=== PATIENT | female | born 1940 | race Caucasian/White ===

== ENCOUNTER → 2019-01-02 08:00 | Outpatient (CLI) | payer MEDICARE, BC, SELFPAY ==
[2019-01-02 09:06] LABS: Erythrocyte Sedimentation Rate 10 mm/hr (0-30)
[2019-01-02 09:07] LABS: Hematocrit 44.7 % (37-47); Hemoglobin 14.5 g/dl (12.0-15.0); Mean Corp Hgb Conc 32.4 g/gl (32-36); Mean Corpuscular Hgb 32.1 pg (27.0-32.0); Mean Corpuscular Volume 98.9 fL (81-99); Mean Platelet Vol. 10.2 fl (6.2-12.0); Platelet Count 335 K/mm3 (150-450); RBC Distribution Width CV 13.9 % (11.6-14.6); Red Blood Count 4.52 M/mm3 (4.2-5.4); Scan Indicated on CBC? Y/N NO; White Blood Count 9.2 K/mm3 (4.4-11.0)
[2019-01-02 09:30] LABS: CRP < 2.90 mg/L (0.0-3.0)
== END ==
PROVIDERS: Family Provider Internal Medicine; PCP Internal Medicine; Referring Provider Ophthalmology; Visit Provider Ophthalmology
DX: R51 Headache (principal)
CPT/HCPCS: 36415; 85027; 85652; 86140

== ENCOUNTER 2020-08-14 11:53 | Emergency (ER) | payer MEDICARE, BC, SELFPAY ==
[2020-08-14 11:55] VITALS: BP 128/80; PULSE 95; RESP 18; TEMP 36.3; O2SAT 91; BMI 16.2
--- NOTE | 2020-08-14 12:21 | RAD_ITS ---
STUDY: X-RAY - RIGHT SHOULDER REASON FOR EXAM: Female, 80 years old. PAIN S/P FALL TECHNIQUE: 2 view(s) of the shoulder. COMPARISON: None. FINDINGS: There is moderate degenerative arthrosis of the glenohumeral articulation. There is degenerative arthrosis of the acromioclavicular joint without inferior osseous spur formation. Normal acromion. Nondisplaced impacted fracture of the proximal surgical neck of the humerus with extension to the greater tuberosity. Soft tissue swelling. Normal visualized pulmonary apex. RAD/Shoulder min 2 Views IMPRESSION: Impacted fracture of the surgical neck of the humerus with extension to the greater tuberosity. Electronically Signed: Maxwell Ventura, at 12:58 EDT , Service support ,
--- NOTE | 2020-08-14 12:21 | RAD_ITS ---
STUDY: X-RAY - RIGHT HUMERUS REASON FOR EXAM: Female, 80 years old. PAIN S/P FALL TECHNIQUE: 2 view(s) of the humerus. COMPARISON: None. FINDINGS: Nondisplaced fracture involving the surgical neck of the humerus with extension to the greater tuberosity. Soft tissue swelling. RAD/Humerus min 2 Views IMPRESSION: Nondisplaced impacted fracture of the surgical neck of the proximal humerus with extension to the greater tuberosity. Electronically Signed: Maxwell Ventura, at 12:57 EDT , Service support ,
--- NOTE | 2020-08-14 13:05 | ED.VIS.FALL ---
History of Present Illness Chief Complaint: Upper Extremity Injury Informant: Patient Occurred: Today Mechanism/Context: Same level fall, Trip - In her home, falling to carpet against her right shoulder Usually ambulates: Without assistance Location: Right shoulder, arm, elbow Quality of Pain: Aching Current Severity: Mild Maximum Severity: Moderate Worsened by: Movement Relieved by: Remaining still Associated Symptoms: Loss of function - Trouble moving at the shoulder mostly. Negative for: Parasthesias, Weakness, Inability to ambulate, Loss of consciousness, Amnesia Narrative: Denies any other injury. [id number]. Lives alone. Past Medical History - Allergies and Home Meds Allergies/Adverse Reactions: Allergies acetaminophen [From Percocet] Allergy (Verified 08/14/20 11:57) PT UNABLE TO RESPOND-NEEDS F/U dizziness oxycodone [From Percocet] Allergy (Verified 08/14/20 11:57) PT UNABLE TO RESPOND-NEEDS F/U dizziness Primary Care Physician: Gabrielle Donis MD [Primary Care Provider] - Past Medical History: None Surgical History: cholecystectomy Lives: Alone Smoking Status: Never smoker Review of Systems General: Denies: Chills, Fever, Sweats Eyes: Denies: Visual changes - bilaterally, Diplopia ENT: Denies: Rhinorrhea, Sore throat Cardiovascular: Denies: Chest pain, Palpitations Respiratory: Denies: Dyspnea, Cough, Dyspnea on exertion Gastrointestinal: Denies: Abdominal pain, Nausea, Vomiting, Diarrhea, Melena, Hematochezia Genitourinary: Denies: Dysuria, Hematuria, Frequency Musculoskeletal: Reports: Extremity Pain. Denies: Neck pain, Back pain, Swelling Skin: Denies: Rash, Wounds Neurological: Denies: Headache, Weakness, Numbness Physical Exam Vital Signs/Narrative: Vital Signs Temp Pulse Resp BP Pulse Ox 08/14/20 11:55 97.3 F L 95 18 128/80 H 91 Inital Vital Signs reviewed: Yes General: Well nourished, Well developed, - - Well-appearing no distress Head: Normocephalic, Atraumatic Eyes: Perrl, EOMI ENT: TM's clear, No hemotympanum or drainage, No trauma Neck: Nontender, Full ROM Cardiovascular: Regular rate, Regular rhythm. Negative for: Tachycardia Respiratory: No distress, CTA bilaterally, Chest nontender Abdomen: Soft, Nontender, Nondistended, Normal bowel sounds Back: Nontender, - - Good range of motion without pain.. Negative for: Spinal Tenderness Extremeties: Limited range of motion right shoulder, with proximal humerus tenderness. No deformity. No subacromial, acromioclavicular tenderness. Able to abduct about 10 to 15 degrees only due to pain. Good range of motion of the elbow, mildly tender at the medial epicondyle, but no other bony tenderness including the radial head, with painless supination and pronation with regards to the elbow. All other joints of the right upper extremity and of the other 3 extremities ranged without any difficulty or evidence of trauma including her hips. Skin: Normal color, No rash, No Trauma Neurological: Alert, Oriented x3, Cranial nerves II-XII grossly intact, Normal Strength, Normal Sensation, Normal Gait Psychological: Normal affect, Normal Mood Diagnostic/Tx/Re-eval Clinical Impression(s) from Imaging Studies Humerus X-Ray 08/14/20 12:21 IMPRESSION: Nondisplaced impacted fracture of the surgical neck of the proximal humerus with extension to the greater tuberosity. Electronically Signed: Maxwell Ventura, at 12:57 EDT , Service support , Shoulder X-Ray 08/14/20 12:21 IMPRESSION: Impacted fracture of the surgical neck of the humerus with extension to the greater tuberosity. Electronically Signed: Maxwell Ventura, at 12:58 EDT , Service support , - Medical Decision Making Patient is placed in a sling and offered analgesics. She was offered admission, she states she has family that can help her at home some and wants to go home at this time and follow up with orthopedics as an outpatient. If she has too much trouble at home, she is encouraged to come back and she and family are fine with that. ED Disposition - Plan for ED Patient: Disposition: Home or Assisted Living Diagnosis: Closed fracture of proximal end of right humerus Instructions: ED Fracture Upper Extremity, ED Sling Prescriptions: Hydrocodone Bitart/Apap 5-325 [[place] 5MG-325MG] 0.5 - 1 tab PO Q4H PRN PRN 2 Days #10 tab PRN Reason: Pain Prescription Printed Referrals: Gabrielle Donis MD [Primary Care Provider] - Quinton Sheehan MD [STAFF PHYSICIAN] - (call for appt)
[2020-08-14] MEDS: HYDROcodone Bitartrate/Apap 5/325 Tablet PO (13:44)
[2020-08-14 13:45] VITALS: PULSE 88; RESP 17; O2SAT 92
== END 2020-08-14 13:46 | disposition home or self-care (01) ==
PROVIDERS: Emergency Provider Emergency Medicine; PCP Internal Medicine
DX: S42.214A Unspecified nondisplaced fracture of surgical neck of right humerus, initial encounter for closed fracture (principal); W18.30XA Fall on same level, unspecified, initial encounter; Y93.9 Activity, unspecified; Y92.009 Unspecified place in unspecified non-institutional (private) residence as the place of occurrence of the external cause; Y99.9 Unspecified external cause status
CPT/HCPCS: 73030; 73060; 99283

== ENCOUNTER 2020-08-25 17:28 | Emergency (ER) | payer MEDICARE, BC, SELFPAY ==
[2020-08-25 17:28] VITALS: BP 126/58; PULSE 87; RESP 16; TEMP 36.6; O2SAT 92; BMI 16.1
--- NOTE | 2020-08-25 17:55 | EKG12_ITS ---
Test Reason : LOWER EXTREMETY Blood Pressure : / mmHG Vent. Rate : 080 BPM Atrial Rate : 080 BPM P-R Int : 160 ms QRS Dur : 092 ms QT Int : 374 ms P-R-T Axes : 090 081 074 degrees QTc Int : 431 ms Normal sinus rhythm with sinus arrhythmia Incomplete right bundle branch block Borderline ECG Confirmed by SUSHIL WEISS, GLADYS ([id number]), commercial production editor CASSIE JACKSON ([id number]) on 09/01/2020 8:42:02 A M Referred By: SOHA/UBALDO Confirmed By:CORA LING MD
--- NOTE | 2020-08-25 17:56 | RAD_ITS ---
STUDY: X-RAY CHEST REASON FOR EXAM: Female, 80 years old. Cough, edema. TECHNIQUE: 2 PA and 2 lateral views of the chest COMPARISON: 2012 FINDINGS: EKG leads overlie the chest. Lungs are hyperexpanded with chronic interstitial changes, no superimposed acute pulmonary process. The lungs are clear and expanded. There is no demonstrated pleural abnormality. Normal size heart. Normal mediastinum and landon. Normal visualized pulmonary arteries. There is atherosclerotic calcification of the aortic arch with tortuosity. There are diffuse degenerative changes of the visualized thoracic spine. Normal visualized ribs, clavicles, and shoulders. There is no demonstrated abnormality of the visualized soft tissue structures of the upper abdomen. RAD/Chest PA and Lateral IMPRESSION: Hyperexpanded lungs with chronic interstitial changes, no superimposed acute pulmonary process Electronically Signed: Yahir Cornell MD at 19:17 EDT , Service support ,
--- NOTE | 2020-08-25 18:24 | ED.DCSUM_ITS ---
History of Present Illness Chief Complaint: Edema Informant: Patient, Family Onset: Days Context: Sudden Onset Timing: Continuous Quality: Swelling of the lower extremity and feet Location: Lower extremity Current Severity: Moderate Maximum Severity: Moderate Worsened by: Possibly immobility Relieved by: Nothing Associated Symptoms: Patient recently fractured her right shoulder and has not been as active. Narrative: Patient 80-year-old woman on no medication. She was recent diagnosed with a 2 part proximal right humeral fracture. She is in a sling. Daughter states she will not require surgery. She is present no medication. She denies orthopnea PND. She denies chest pain. She denies palpitations. She denies dyspnea, dyspnea on exertion. She denies any urinary symptoms. She has no known renal disease. Patient states her legs are not painful. Prior similar symptoms: No Recent Illness/Hospitalization: Yes - Proximal right humerus fracture - Past Medical History (1) Shoulder fracture, right Status: Acute Past Medical History - Allergies and Home Meds Allergies/Adverse Reactions: Allergies oxycodone [From Percocet] Allergy (Verified 08/14/20 11:57) PT UNABLE TO RESPOND-NEEDS F/U dizziness Primary Care Physician: Gabrielle Donis MD [Primary Care Provider] - Prior records reviewed: Yes Past Medical History: None Surgical History: cholecystectomy Lives: With Family Smoking Status: Current every day smoker Alcohol: None Drugs: None Review of Systems General: Denies: Chills, Fever, Sweats Eyes: Denies: Visual changes - bilaterally, Blurred Vision - bilaterally, Diplopia ENT: Denies: Rhinorrhea, Sore throat Cardiovascular: Denies: Chest pain, Palpitations, Heart racing Respiratory: Denies: Dyspnea, Cough, Dyspnea on exertion, Orthopnea, Paroxysmal nocturnal dyspnea Gastrointestinal: Denies: Abdominal pain, Nausea, Vomiting, Diarrhea, Melena, Hematochezia Genitourinary: Denies: Dysuria, Hematuria, Frequency Musculoskeletal: Reports: Swelling. Denies: Myalgias, Arthralgias, Neck pain, Back pain, Extremity Pain, -, - Skin: Denies: Rash, Wounds Neurological: Denies: Headache, Weakness, Numbness Hematologic: Denies: Easy bruising, Easy bleeding Physical Exam Vital Signs/Narrative: Vital Signs Temp Pulse Resp BP Pulse Ox 08/25/20 17:28 97.8 F 87 16 126/58 H 92 Inital Vital Signs reviewed: Yes General: Well nourished, Well developed Eyes: Perrl, EOMI. Negative for: Pale conjunctiva ENT: Moist mucous membranes, No rhinorrhea Neck: Supple, Nontender, No lymphadenopathy, No JVD Cardiovascular: Regular rate, Regular rhythm, No murmurs, Normal S1, Normal S2 Respiratory: No distress, CTA bilaterally, Chest nontender Rectal: Deferred Back: Negative for: Nontender, Normal Inspection Extremities: Edema - 6 to 8 mm of pitting edema, - - Discoloration of the right upper extremity due to the proximal humeral fracture. Axillary, median, radial and ulnar function intact.. Negative for: Calf Tenderness Skin: No rash, Pallor. Negative for: Cyanosis, Diaphoresis, Jaundice, No Trauma Neurological: Alert, Oriented x3, Cranial nerves II-XII grossly intact, Normal Strength, Normal Sensation Psychological: Normal affect, Normal Mood Diagnostic/Tx/Re-eval Chest X-Ray - ED: 2 View, Read by ED Physician, Normal, Heart, No Acute Disease, Chronic Changes, - - Tory reveals hyper aeration. Checks x-ray is unchanged from June 01, 2013. 08/25/20 17:56 Chest PA and Lateral [RAD] Stat Laboratory Results 08/25/20 08/25/20 18:10 18:10 WBC 11.1 H RBC 4.03 L Hgb 12.3 Hct 38.6 MCV 95.8 MCH 30.5 MCHC 31.9 L RDW Std Deviation 55.0 H RDW Coeff of Loc 15.8 H Plt Count 473 H MPV 9.2 Sodium 142 Potassium 3.7 Chloride 107 Carbon Dioxide 33.0 H Anion Gap 2 L BUN 22 H Creatinine 0.69 Estim Creat Clear Calc 31.06 Est GFR (MDRD) Af Amer 104 Est GFR (MDRD) Non-Af 86 BUN/Creatinine Ratio 31.7 H Glucose 102 Calcium 9.3 Total Bilirubin 0.40 AST 25 ALT 23 Alkaline Phosphatase 111 Total Protein 6.9 Albumin 3.0 L Globulin 3.9 Albumin/Globulin Ratio 0.8 L - Rhythm Strip Rhythm Strip: Sinus Rhythm - EKG Initial EKG Interpretation: Sinus Rhythm - Normal sinus rhythm with a ventricular rate of 80. AK interval 160 ms. QRS duration 92 ms. QT duration 374 ms. There is an RR prime in V1 and V2. - Medical Decision Making Diagnosis includes renal disease, congestive heart failure, dependent edema due to immobility. EKG, chest x-ray and appropriate blood work was ordered. Patient's total protein and albumin are essentially unremarkable. Renal fun ctions normal. Chest x-ray was no evidence of congestive heart failure. Patient was informed the cause of her edema is dependent edema due to immobility. She was discharged home with appropriate home-going instructions. ED Disposition - Plan for ED Patient: Disposition: Home or Assisted Living Diagnosis: Dependent edema Instructions: ED Peripheral Edema, Bilateral Referrals: Gabrielle Donis MD [Primary Care Provider] - 1 Week if not improving Additional Instructions: 1`. You need to increase your mobility. 2. You need to elevate your toes above your nose when you are not mobile.
[2020-08-25 18:25] LABS: Hematocrit 38.6 % (37-47); Hemoglobin 12.3 g/dL (12.0-15.0); Mean Corp Hgb Conc 31.9 g/dL (32-36); Mean Corpuscular Hgb 30.5 pg (27.0-32.0); Mean Corpuscular Volume 95.8 fL (81-99); Mean Platelet Vol. 9.2 fl (6.2-12.0); Platelet Count 473 K/mm3 (150-450); RBC Distribution Width CV 15.8 % (11.6-14.6); Red Blood Count 4.03 M/mm3 (4.2-5.4); White Blood Count 11.1 K/mm3 (4.4-11.0)
[2020-08-25 18:42] LABS: ALB/GLOB Ratio 0.8 RATIO (0.9-2.4); AST(SGOT) 25 U/L (15-37); Alanine Aminotransfer ALT/SGPT 23 U/L (13-56); Alkaline Phosphatase 111 U/L (45-117); Anion Gap 2 (5-15); BUN 22 mg/dL (7-18); BUN/Creat Ratio 31.7 RATIO (10-20); Calcium,Total 9.3 mg/dL (8.5-10.1); Chloride 107 mmol/L (98-107); Creatinine, Serum 0.69 mg/dL (0.55-1.02); EST Glomerular Filtration Rate 86 mL/min (>60); Est Glom Filt Rate - Afr Amer 104 mL/min (>60); Estimated Creatinine Clearance 31.06 ml/min; Globulin 3.9 g/dL (2.2-4.2); Glucose 102 mg/dL (74-106); Potassium 3.7 mmol/L (3.5-5.1); Protein, Total 6.9 g/dL (6.4-8.2); Sodium Level 142 mmol/L (136-145)
[2020-08-25 19:00] VITALS: BP 140/77; PULSE 77; RESP 24; O2SAT 96
== END 2020-08-25 19:01 | disposition home or self-care (01) ==
PROVIDERS: Emergency Provider Emergency Medicine; PCP Internal Medicine
DX: R60.0 Localized edema (principal); S42.201D Unspecified fracture of upper end of right humerus, subsequent encounter for fracture with routine healing; X58.XXXD Exposure to other specified factors, subsequent encounter; F17.200 Nicotine dependence, unspecified, uncomplicated; Z79.899 Other long term (current) drug therapy
CPT/HCPCS: 36415; 71046; 80053; 85027; 93005; 99281; 99285; A4216

== ENCOUNTER 2020-11-28 11:00 | Observation (INO) | payer MEDICARE, BC, SELFPAY ==
[2020-11-28] VITALS (18 sets, daily range): BP systolic 118–171; BP diastolic 55–101; PULSE 60–147; RESP 16–26; TEMP 35.8–36.4; O2SAT 94–99; BMI 19.3; BMI 19.4; BMI 17.9
--- NOTE | 2020-11-28 11:32 | EKG12_ITS ---
Test Reason : CARDIOVERSION Blood Pressure : / mmHG Vent. Rate : 081 BPM Atrial Rate : 081 BPM P-R Int : 140 ms QRS Dur : 076 ms QT Int : 372 ms P-R-T Axes : 082 087 079 degrees QTc Int : 432 ms Sinus rhythm with Premature atrial complexes Nonspecific ST abnormality Abnormal ECG Confirmed by SHAYNA WEISS, STEFAN ([id number]), website/blog editor KOSTA LY ([id number]) on 12/03/2020 6:36:54 AM Referred By: RG Confirmed By:STEFAN CORRAL MD
--- NOTE | 2020-11-28 11:32 | RAD_ITS ---
STUDY: X-RAY - RIGHT TIBIA AND FIBULA REASON FOR EXAM: Female, 80 years old. Pt fell today, right lower leg pain TECHNIQUE: 2 view(s) of the tibia and fibula were obtained. COMPARISON: None. FINDINGS: There is demineralization of the tibia. There is demineralization of the fibula. Soft tissue swelling. RAD/Tibia & Fibula 2 Views IMPRESSION: No acute abnormality is seen. Electronically Signed: Maxwell Ventura, at 12:46 EST , Service support ,
--- NOTE | 2020-11-28 11:34 | ED.DCSUM_ITS ---
- ER Visit Summary Date of Service: 11/28/20 Chief Complaint: Fall History of Present Illness: The patient is a 80 F who presents after a fall that occurred today. Patient was sitting in the chair when she fell out of bed. Patient states she has pain in her left ring finger and both knees. Patient states she does feel like her heart is racing. Patient denies any shortness of breath or chest pain. Patient denies any nausea or vomiting. Patient states she did not pass out. Patient denies any recent fevers or chills. Patient denies any paresthesias or weakness. Patient denies any other injuries. Physical Examination: Vital signs are stable except for a tachycardia of 147. Patient is afebrile. Patient is in no acute distress. Oral mucosa is pink and moist. Neck is supple. Trachea is midline. There is no JVD. Heart was regular and tachycardic. Lungs are clear and equal bilaterally. Abdomen is soft and nontender. Cranial nerves II through XII are intact. There are no focal motor or sensory deficits noted. Musculoskeletal exam revealed tenderness, edema, and ecchymosis over the proximal phalanx of the left ring finger. There is no obvious deformity. There is also tenderness over the right mid tibia and fibula. There is no deformity noted. There is good range of motion of the ankles and knees bilaterally. Test Results: X-rays of the left ring finger were obtained. There are 3 views. On my interpretation, there is no acute fracture. There is no dislocation. There is some mild soft tissue swelling. X-rays of the right tib-fib were obtained. There are 2 views. On my interpretation, there is no acute fracture. There are some mild degenerative changes. There is no soft tissue swelling. EKG was obtained. On my interpretation, there is a supraventricular tachycardia with a rate of 141. There are rate dependent ST depression in V3 through V6. Repeat EKG was obtained. This shows a normal sinus rhythm with a rate of 81. There are no acute ST or T wave changes. This was unchanged compared to previous EKG dated 08/25/2020. CBC was normal. Comprehensive metabolic profile showed a mild hypokalemia of 2.8. Urinalysis does not show any evidence of urinary tract infection. Troponin was normal. Emergency Department Course and Treatment: Patient was given adenosine 6 mg here. Patient slowed down to a normal sinus rhythm. Patient's rate increased back into the 140s. Prior to any further medication, the patient converted back to a normal sinus rhythm with a rate in the 80s. Patient maintained this during the emergency department stay. Patient was given a dose of oral potassium and IV potassium. Case was discussed with the hospitalist. He will admit the patient for observation. Disposition: Admit for observation Impression: 1. Supraventricular tachycardia 2. Hypokalemia This note was generated with [employer] dictation software. It may contain incorrect words, spelling, and punctuation that were not noted in review of the chart prior to signing ED Disposition - Plan for ED Patient: Disposition: Acute Care Hospital [facility] Diagnosis: Supraventricular tachycardia, Hypokalemia Referrals: Gabrielle Donis MD [Primary Care Provider] -
[2020-11-28 11:38] LABS: Bacteria 0 SEEN /hpf (None Seen); Mucous, Urine 0 SEEN /hpf (<or=2+); Red Blood Cells-Urine 0 SEEN /hpf (0-5); Squamous Epithelial Cells - UA 0 SEEN /hpf (5-10); White Blood Cells 0 SEEN /hpf (0-5)
[2020-11-28 11:41] LABS: Absolute Lymphocyte Count 3.44 X10^3/uL (0.83-4.51); Eosinophil# 0.09 X10^3/uL; Eosinophils% 0.9 % (0-5); Hemoglobin 14.5 g/dL (12.0-15.0); Lymphocyte # 3.44 X10^3/ul (4.0); Lymphocyte % 33.3 % (19-41); Mean Corp Hgb Conc 32.2 g/dL (32-36); Mean Corpuscular Hgb 30.7 pg (27.0-32.0); Mean Corpuscular Volume 95.1 fL (81-99); Mean Platelet Vol. 9.7 fl (6.2-12.0); Monocyte# 0.67 X10^3/uL; Monocyte% 6.5 % (0-10); NRBC Flagged by Analyzer 0 % (0-5); Neutrophil % 57.9 % (47-70); Platelet Count 397 K/mm3 (150-450); RBC Distribution Width CV 13.4 % (11.6-14.6); RBC Distribution Width SD 47.5 fl (35.1-43.9); Red Blood Count 4.73 M/mm3 (4.2-5.4); White Blood Count 10.3 K/mm3 (4.4-11.0)
[2020-11-28] MEDS: Adenosine 6 MG/2 ML Syringe IV (11:43)
[2020-11-28 11:49] LABS: Color, Urine Straw (Yellow); Glucose, Dipstick Normal (Normal); Ketone-Dipstick Negative (Negative); Leukocyte Esterase-Dipstick Negative /ul (Negative); Nitrite-Dipstick Negative (Negative); Occult Blood-Urine Negative /ul (Negative); Protein-Dipstick Negative (Negative); Specific Gravity, Urine 1.005 (1.002-1.030); Urine Bilirubin Dipstick Negative (Negative); Urine Clarity Clear (Clear); Urine Urobilinogen Normal (Normal)
--- NOTE | 2020-11-28 11:56 | RAD_ITS ---
STUDY: X-RAY - LEFT HAND, ATTENTION FOURTH FINGER REASON FOR EXAM: Female, 80 years old. Pt fell today, left 4th phalanges pain and bruising at proximal interphalangeal joint TECHNIQUE: 3 view(s) of the finger were obtained. COMPARISON: None. FINDINGS: Normal metacarpal head. Normal metacarpophalangeal joint. There is demineralization of the proximal phalanx. There is demineralization of the middle phalanx. There is demineralization of the distal phalanx. There is mild degenerative arthrosis of the proximal interphalangeal joint. There is mild degenerative arthrosis of the distal interphalangeal joint. RAD/Finger(s) Min 2 Views IMPRESSION: Degenerative changes. Demineralization. No fracture is seen. Electronically Signed: Maxwell Ventura, at 12:43 EST , Service support ,
[2020-11-28 11:58] LABS: ALB/GLOB Ratio 0.8 RATIO (0.9-2.4); AST(SGOT) 19 U/L (15-37); Alanine Aminotransfer ALT/SGPT 19 U/L (13-56); Albumin, Serum 3.5 g/dL (3.2-5.0); Alkaline Phosphatase 119 U/L (45-117); Anion Gap 4 (5-15); BUN 12 mg/dL (7-18); BUN/Creat Ratio 17.7 RATIO (10-20); Calcium,Total 9.2 mg/dL (8.5-10.1); Chloride 101 mmol/L (98-107); Creatinine, Serum 0.68 mg/dL (0.55-1.02); EST Glomerular Filtration Rate 88 mL/min (>60); Est Glom Filt Rate - Afr Amer 107 mL/min (>60); Estimated Creatinine Clearance 37.27 ml/min; Globulin 4.5 g/dL (2.2-4.2); Glucose 83 mg/dL (74-106); Potassium 2.8 mmol/L (3.5-5.1); Sodium Level 141 mmol/L (136-145)
--- NOTE | 2020-11-28 12:30 | EKG12_ITS ---
Test Reason : TACHY Blood Pressure : / mmHG Vent. Rate : 141 BPM Atrial Rate : 065 BPM P-R Int : 000 ms QRS Dur : 088 ms QT Int : 320 ms P-R-T Axes : 000 094 059 degrees QTc Int : 490 ms Supraventricular tachycardia Rightward axis Marked ST abnormality, possible inferior subendocardial injury Abnormal ECG Confirmed by SHAYNA WEISS, STEFAN ([id number]), field application engineer KOSTA LY ([id number]) on 12/03/2020 6:36:38 AM Referred By: RG Confirmed By:STEFAN CORRAL MD
[2020-11-28] MEDS: Potassium Chloride 10mEq/100mL 10 MEQ/100 ML IV.SOLN. 100 MEQ IV BOLUS (14:33)
--- NOTE | 2020-11-28 14:42 | PCM.HP.STD ---
Problem List (1) Hypokalemia Status: Acute (2) Supraventricular tachycardia Status: Acute (3) Shoulder fracture, right Status: Acute (4) Tobacco dependence Status: Chronic (5) Osteoporosis Status: Chronic History of Present Illness Date of Admission: 11/28/20 Chief Complaint: Fall The patient is a 80 year old F an 80-year-old lady with past medical history single for osteoporosis, tobacco dependence who presented to the emergency department after a fall while sitting on a chair. Patient states he did not experience any lightheadedness no shortness of breath prior to the fall. She called her nephew the patient to the hospital. In the ED patient underwent skeletal survey no fracture was found. She was placed on the monitor and was found to be in SVT. Did receive adenosine which did slow her heart rate. She converted minutes after receiving adenosine. Decision was made to admit patient for subsequent inpatient evaluation and management. Past Medical History Past Medical History (Chronic Problems): Chronic Problems Tobacco dependence (Chronic) Osteoporosis (Chronic) Allergies oxycodone [From Percocet] Allergy (Verified 11/28/20 11:03) PT UNABLE TO RESPOND-NEEDS F/U dizziness Home Medications: Ambulatory Orders Medication Instructions Recorded Albuterol Sulfate [Albuterol 2 puff IH Q6H PRN PRN 08/25/20 Sulfate HFA] Alendronate Sodium [Fosamax] 70 mg PO SALVADOR 08/25/20 Furosemide [Lasix] 20 - 40 mg PO DAILY 11/28/20 Surgical History: cholecystectomy Smoking Status: Current every day smoker Tobacco Use: Cigarettes - *Family History Paternal History Items: Heart Disease Review of Systems Constitutional: Denies: Anorexia, Chills, Fever, Night Sweats, Weight Change HEENT: Denies: Head Aches, Sinus Congestion, Sinus Drainage Cardiovascular: Denies: Chest Pain, Orthopnea, Palpitations, Paroxysmal Noc. Dyspnea Respiratory: Denies: Cough, Shortness of breath at rest, Shortness of breath upon exertion, Sputum production Gastrointestinal: Denies: Abdominal Pain, Hematemesis, Hematochezia, Nausea, Melena, Vomiting Genitourinary: Denies: Dysuria, Frequency, Hematuria, Urgency Musculoskeletal: Denies: Joint Pain, Joint Tenderness Skin: Denies: Rash Neurological: Denies: Focal weakness, Numbness, Tingling Psychiatric: Denies: Homicidal Ideations, Suicidal Ideations Hematologic/ Lymphatic: Denies: Easy Bruising, Easy Bleeding VTE Information - Inpt Only VTE Present on Admission: No VTE Mechan Device Prophylaxis: None VTE Pharm Prophylaxis ordered?: Yes Patient Problems: Active and Suspected Problems Supraventricular tachycardia (Acute) Hypokalemia (Acute) Objective: GENERAL: cooperative HEENT: Atraumatic; EYES; Anicteric, Normal Conjunctiva NECK; supple, normal thyroid, RESPIRATORY: Diminished to auscultation CARDIOVASCULAR: Regular S1 S2, GI: soft, normoactive bowel sounds, : No Renal angle tenderness; EXTREMITIES: No edema, no clubbing, MUSCULOSKELETAL: no muscle waisting NEURO: Awake; no lateralizing signs. SKIN: No Rash PSYCH; Flat affect - Physical Exam Vitals/I&O's: Vital Signs Temp Pulse Resp BP Pulse Ox 97.2 F L 75 20 H 144/72 H 98 11/28/20 14:00 11/28/20 14:00 11/28/20 14:00 11/28/20 14:00 11/28/20 14:00 Oxygen Flow Rate (L/min) 2 Oxygen Delivery Method Nasal Cannula Weight: 54.431 kg Body Mass Index (BMI) 19.3 Intake and Output for Last 24 Hours 11/26/20 11/27/20 11/28/20 23:59 23:59 23:59 Intake Total 500 / 500 Balance 500 / 500 Laboratory Results 11/28/20 11:15: Urine Color Straw, Urine Clarity Clear, Urine pH 7.0, Ur Specific [place] 1.005, Urine Protein Negative, Urine Glucose (UA) Normal, Urine Ketones Negative, Urine Occult Blood Negative, Urine Nitrite Negative, Urine Bilirubin Negative, Urine Urobilinogen Normal, Ur Leukocyte Esterase Negative, Urine RBC 0 SEEN, Urine WBC 0 SEEN, Ur Squamous Epith Cells 0 SEEN, Urine Bacteria 0 SEEN, Urine Mucus 0 SEEN 11/28/20 11:20: WBC 10.3, RBC 4.73, Hgb 14.5, Hct 45.0, MCV 95.1, MCH 30.7, MCHC 32.2, RDW Std Deviation 47.5 H, RDW Coeff of Loc 13.4, Plt Count 397, MPV 9.7, Immature Gran % (Auto) 0.400, Neut % (Auto) 57.9, Lymph % (Auto) 33.3, [place] % (Auto) 6.5, Eos % (Auto) 0.9, Baso % (Auto) 1.0, Absolute Neuts (auto) 6.0, Absolute Lymphs (auto) 3.44, Nucleated RBC % 0 11/28/20 11:20: Sodium 141, Potassium 2.8 L, Chloride 101, Carbon Dioxide 36.0 H, Anion Gap 4 L, BUN 12, Creatinine 0.68, Estim Creat Clear Calc 37.27, Est GFR (MDRD) Af Amer 107, Est GFR (MDRD) Non-Af 88, BUN/Creatinine Ratio 17.7, Glucose 83, Calcium 9.2, Total Bilirubin 0.30, AST 19, ALT 19, Alkaline Phosphatase 119 H, Troponin I < 0.015, Total Protein 8.0, Albumin 3.5, Globulin 4.5 H, Albumin/Globulin Ratio 0.8 L Assessment/Plan All Active Problems Shoulder fracture, right (Acute) Supraventricular tachycardia (Acute) Hypokalemia (Acute) Patient is an 80-year-old lady who presented following a fall found to be in SVT in the ED 1. SVT ?Patient did receive adenosine in the ED converted. Admitted to regular nursing floor for subsequent management. Placed on continuous telemetry monitoring. As part of her management ordered 2D echo and serial cardiac enzymes 2. Fall ?Following patient SVT. Skeletal survey did not reveal any fractured bone. Requested for PT OT eval and treat 3. Hypokalemia ?Corrected per protocol. Did check for magnesium to be corrected as well if low 4. Tobacco dependence - Counseled on cessation, offered nicotine patch for tobacco cravings 5. Osteoporosis ?Patient is on biphosphonate continued 6. DVT prophylaxis ?Lovenox Advance planning; did discuss with the patient regarding advanced directives as well as CODE STATUS. Did explain the various scenarios involved ( FULL CODE, DNR CCA, DNR CCA with no intubation, and DNR CC and what each meant) patient elected to be DNR CCA no intubation. Order was placed. Time spent on discussion 18 minutes. OBSV E&M: [id number] Initial observation care L3 Procedures: [id number] Advncd Care Plan 30 Min
--- NOTE | 2020-11-28 15:20 | NURSING ---
family updated on admission
--- NOTE | 2020-11-28 16:34 | ECHOD_ITS ---
Reason For Study: SRRHYTHMIA (SVT) Procedure This was a 2D Doppler, Color Flow transthoracic echocardiogram. The study was technically difficult. Due to patient movement and body habitus. Exam performed portable in patient room. Left Ventricle Normal LV size. Left ventricular systolic function is normal. The estimated ejection fraction is 65 %. Diastolic function is indeterminate. No regional wall motion abnormalities noted. Right Ventricle Normal RV size. Normal systolic function. Atria Normal left atrium. Normal right atrium. No doppler evidence for ASD. Mitral Valve There is mild mitral annular calcification. Extension of the mitral annular calcification onto the base of the posterior mitral valve leaflet. Trivial mitral valve insufficiency. Tricuspid Valve Normal tricuspid valve. Mild to moderate (1-2+) tricuspid valve insufficiency. Right ventricular systolic pressure estimated to be 37 mmHg. Aortic Valve Trisinus/trileaflet aortic valve. Mild focal aortic valve calcification. Pulmonic Valve The pulmonic valve is not well visualized. Trivial pulmonic valve insufficiency identified. Great Vessels Normal sized aortic root. Pericardium/Pleural No pericardial effusion. MMode/2D Measurements & Calculations LVIDd: 3.4 cm IVSd: 1.1 cm Ao root diam: 3.6 cm LVIDs: 2.5 cm LVPWd: 1.0 cm RVDd: 3.3 cm FS: 27.4 % LAV(MOD-bp): 28.4 ml LA A4 area: 12.0 cm2 LA dimension(2D): 2.7 cm LAV(MOD-bp) Indexed: 18.3 ml/m2 LAV(MOD-sp2): 28.1 ml LAV(MOD-sp4): 23.5 ml RA A4 area: 12.0 cm2 Time Measurements MV dec time: 0.34 sec Doppler Measurements & Calculations MV E max marito: 75.2 cm/sec Lat Peak E' Marito: 8.5 cm/sec Med Peak E' Marito: 6.8 cm/sec MV A max marito: 104.6 cm/sec E/E' lat: 8.9 E/E' med: 11.0 MV E/A: 0.72 Ao V2 max: 110.1 cm/sec LV V1 max: 79.2 cm/sec PA V2 max: 74.3 cm/sec Ao max P.9 mmHg LV V1 max P.5 mmHg TR max marito: 289.9 cm/sec TR max P.7 mmHg Interpretation Summary The study was technically difficult. Left ventricular systolic function is normal. The estimated ejection fraction is 65 %. There is mild mitral annular calcification. Extension of the mitral annular calcification onto the base of the posterior mitral valve leaflet. Trivial mitral valve insufficiency. Mild to moderate (1-2+) tricuspid valve insufficiency. Mild focal aortic valve calcification. Trivial pulmonic valve insufficiency identified. Right ventricular systolic pressure estimated to be 37 mmHg. Diastolic function is indeterminate. Ordering Physician: Cedric Peguero Referring Physician: Hunter Donis Performed By: Pham Brian, ANSON, RVT
[2020-11-28 17:15] LABS: Magnesium 1.8 mg/dL (1.6-2.6)
[2020-11-28] MEDS: 0.9% Saline Lock 10 ML Syringe IV (17:27)
[2020-11-28] MEDS: Metoprolol Tartrate 25 MG Tablet 12.5 MG PO (21:21)
[2020-11-29] VITALS (8 sets, daily range): BP systolic 144–158; BP diastolic 65–88; PULSE 55–71; RESP 16–20; TEMP 36.8–37.1; O2SAT 93–95
--- NOTE | 2020-11-29 07:30 | PCS.PANDOC ---
PANDEMIC DOCUMENTATION INITIATED: Date: 11/28/20 Time: 4280
[2020-11-29 07:45] LABS: Absolute Lymphocyte Count 2.19 X10^3/uL (0.83-4.51); Absolute Neutrophil Count 5.9 X10^3/uL (2.0-7.7); Basophil# 0.06 X10^3/uL; Basophil% 0.7 % (0-1); Eosinophil# 0.15 X10^3/uL; Eosinophils% 1.7 % (0-5); Hematocrit 40.2 % (37-47); Hemoglobin 12.8 g/dL (12.0-15.0); Lymphocyte # 2.19 X10^3/ul (4.0); Lymphocyte % 24.7 % (19-41); Mean Corp Hgb Conc 31.8 g/dL (32-36); Mean Corpuscular Hgb 30.5 pg (27.0-32.0); Mean Corpuscular Volume 95.7 fL (81-99); Mean Platelet Vol. 9.8 fl (6.2-12.0); Monocyte# 0.54 X10^3/uL; Monocyte% 6.1 % (0-10); NRBC Flagged by Analyzer 0 % (0-5); Neutrophil % 66.6 % (47-70); Platelet Count 353 K/mm3 (150-450); RBC Distribution Width CV 13.7 % (11.6-14.6); RBC Distribution Width SD 48.3 fl (35.1-43.9); White Blood Count 8.9 K/mm3 (4.4-11.0)
[2020-11-29 08:21] LABS: Anion Gap 2 (5-15); BUN 10 mg/dL (7-18); BUN/Creat Ratio 18.8 RATIO (10-20); Calcium,Total 8.8 mg/dL (8.5-10.1); Chloride 109 mmol/L (98-107); Creatinine, Serum 0.53 mg/dL (0.55-1.02); EST Glomerular Filtration Rate 116 mL/min (>60); Est Glom Filt Rate - Afr Amer 141 mL/min (>60); Estimated Creatinine Clearance 34.51 ml/min; Glucose 79 mg/dL (74-106); Magnesium 1.8 mg/dL (1.6-2.6); Phosphorus 2.6 mg/dL (2.5-4.9); Potassium 4.4 mmol/L (3.5-5.1); Sodium Level 143 mmol/L (136-145)
[2020-11-29] MEDS: Metoprolol Tartrate 25 MG Tablet 12.5 MG PO (09:58)
[2020-11-29] MEDS: Enoxaparin 40 MG/0.4 ML Syringe SC (09:58)
--- NOTE | 2020-11-29 10:59 | DCINST_ITS ---
- Discharge Diagnoses Current Active Problems: Current Active and Chronic Problems Shoulder fracture, right (Acute) Supraventricular tachycardia (Acute) Hypokalemia (Acute) Tobacco dependence (Chronic) Osteoporosis (Chronic) You will use the following diet at home:: Regular Allergies/Adverse Reactions: Allergies oxycodone [From Percocet] Allergy (Verified 11/28/20 14:48) dizziness Medications to take at Discharge Albuterol Sulfate [Albuterol Sulfate HFA] 2 puff IH Q6H PRN PRN 08/25/20 Alendronate Sodium [Fosamax] 70 mg PO SALVADOR 08/25/20 Furosemide [Lasix] 20 - 40 mg PO DAILY 11/28/20 Metoprolol Tartrate [Lopressor (beta acosta)] 25 mg PO BID #120 tab 11/29/20 Potassium Chloride [K-Dur] 20 meq PO BIDCM #60 tab 11/29/20 The following prescriptions were given: Potassium Chloride [K-Dur] 20 meq PO BIDCM #60 tab Transmission Status: Received by [facility]30 Metoprolol Tartrate [Lopressor (beta acosta)] 25 mg PO BID #120 tab Transmission Status: Received by [facility]30 Orders to be completed after discharge: Wheeled Walker Location: None Selected Primary Care Physician: Gabrielle Donis MD [Primary Care Provider] - Please follow up with your Primary Care Physician in: in 1 week Test Results: Test results from this visit will be discussed in further detail at your follow- up appointment, if applicable. Proposed Discharge Date: 11/29/20
--- NOTE | 2020-11-29 12:01 | PCM.DC.SUM ---
Discharge Date and Diagnosis - Problem List Patient Problems: Active and Suspected Problems Shoulder fracture, right (Acute) Supraventricular tachycardia (Acute) Hypokalemia (Acute) Date of Admission: 11/28/20 Date of Discharge: 11/29/20 - Primary Discharge Diagnosis Acute Problems: Active Problems Shoulder fracture, right (Acute) Supraventricular tachycardia (Acute) Hypokalemia (Acute) - Secondary Discharge Diagnosis Chronic Problems: Chronic Problems Tobacco dependence (Chronic) Osteoporosis (Chronic) Hospital Course and Treatment Summary of Care Provided: Patient is an 80-year-old lady who presented following a fall found to be in SVT in the ED 1. SVT ?Patient did receive adenosine in the ED converted. Admitted to regular nursing floor for subsequent management. Placed on continuous telemetry monitoring. As part of her management ordered 2D echo and serial cardiac enzymes. -11/29/2020; patient had no recurrence of SVT. Echo demonstrated EF of 65% with mild to moderate tricuspid valve insufficiency and mild focal aortic calcification. RV SP was estimated to be 37 mmHg. Patient was discharged on beta-blockers. 2. Fall ?Following patient SVT. Skeletal survey did not reveal any fractured bone. Requested for PT OT eval and treat -11/29/2020; patient was seen and assessed by PT OT patient was discharged home with a wheeled walker 3. Hypokalemia ?Corrected per protocol. Did check for magnesium to be corrected as well if low 4. Tobacco dependence - Counseled on cessation, offered nicotine patch for tobacco cravings 5. Osteoporosis ?Patient is on biphosphonate continued 6. DVT prophylaxis ?Lovenox Patient Problems: Active and Suspected Problems Shoulder fracture, right (Acute) Supraventricular tachycardia (Acute) Hypokalemia (Acute) Objective: GENERAL: cooperative HEENT: Atraumatic; EYES; Anicteric, Normal Conjunctiva NECK; supple, normal thyroid, RESPIRATORY: Diminished to auscultation CARDIOVASCULAR: Regular S1 S2, GI: soft, normoactive bowel sounds, : No Renal angle tenderness; EXTREMITIES: No edema, no clubbing, MUSCULOSKELETAL: no muscle waisting NEURO: Awake; no lateralizing signs. SKIN: No Rash PSYCH; Flat affect - Physical Exam Vitals/I&O's: Vital Signs Temp Pulse Resp BP Pulse Ox 98.8 F 70 18 144/65 H 93 11/29/20 09:50 11/29/20 09:58 11/29/20 09:50 11/29/20 09:50 11/29/20 09:50 Oxygen Flow Rate (L/min) 2 Oxygen Delivery Method Room Air Weight: 50.4 kg Body Mass Index (BMI) 17.9 Intake and Output for Last 24 Hours 11/27/20 11/28/20 11/29/20 23:59 23:59 23:59 Intake Total 820 / 940 1240 / 1240 Output Total 275 / 275 Balance 820 / 940 965 / 965 Laboratory Results 11/28/20 16:54: Magnesium 1.8 11/28/20 16:54: Troponin I < 0.015 11/28/20 19:43: Troponin I < 0.015 11/28/20 22:17: Troponin I < 0.015 11/29/20 07:16: WBC 8.9, RBC 4.20, Hgb 12.8, Hct 40.2, MCV 95.7, MCH 30.5, MCHC 31.8 L, RDW Std Deviation 48.3 H, RDW Coeff of Loc 13.7, Plt Count 353, MPV 9.8, Immature Gran % (Auto) 0.200, Neut % (Auto) 66.6, Lymph % (Auto) 24.7, Towns % (Auto) 6.1, Eos % (Auto) 1.7, Baso % (Auto) 0.7, Absolute Neuts (auto) 5.9, Absolute Lymphs (auto) 2.19, Nucleated RBC % 0 11/29/20 07:16: Sodium 143, Potassium 4.4, Chloride 109 H, Carbon Dioxide 32.0, Anion Gap 2 L, BUN 10, Creatinine 0.53 L, Estim Creat Clear Calc 34.51, Est GFR (MDRD) Af Amer 141, Est GFR (MDRD) Non-Af 116, BUN/Creatinine Ratio 18.8, Glucose 79, Calcium 8.8, Phosphorus 2.6, Magnesium 1.8 Current Medications Acetaminophen (Acetaminophen 325 Mg Tablet) 650 mg PO Q6H PRN PRN PRN Reason: Pain Score 1-10/Temp > 100.7 F Enoxaparin Sodium (Enoxaparin 40 Mg/0.4 Ml Syringe) 40 mg SC DAILY EDI Last Admin: 11/29/20 09:58 Dose: 40 mg Documented by: Potassium Chloride/Sodium Chloride (Kcl 20meq In 0.45% Ns 1000ml) 1,000 mls @ 100 mls/hr IV .Q10H [facility] Last Admin: 11/29/20 03:36 Dose: 100 mls/hr Documented by: Metoprolol Tartrate (Metoprolol Tartrate 25 Mg Tablet) 12.5 mg PO BID [facility] Last Admin: 11/29/20 09:58 Dose: 12.5 mg Documented by: Nitroglycerin (Nitroglycerin (Inpatient Use) 0.4 Mg Tab.Subl) 0.4 mg SUBLINGUAL Q5M PRN PRN Reason: CARDIAC/CHEST PAIN Ondansetron HCl (Ondansetron 4 Mg/2 Ml Vial) 4 mg IV Q8H PRN PRN PRN Reason: NAUSEA/VOMITING Potassium Chloride (Potassium Chloride 20 Meq Tablet) 20 meq PO BIDCM [facility] Last Admin: 11/29/20 07:59 Dose: 20 meq Documented by: Sodium Chloride (0.9% Saline Lock 10 Ml Syringe) 10 - 40 ml IV UD PRN PRN Reason: SALINE FLUSH Last Admin: 11/28/20 17:27 Dose: 10 ml Documented by: Discharge Diet: No Restrictions Discharge Activity: Return to Normal Activity Home Medications: Medications to take at Discharge Albuterol Sulfate [Albuterol Sulfate HFA] 2 puff IH Q6H PRN PRN 08/25/20 Alendronate Sodium [Fosamax] 70 mg PO SALVADOR 08/25/20 Furosemide [Lasix] 20 - 40 mg PO DAILY 11/28/20 Metoprolol Tartrate [Lopressor (beta acosta)] 25 mg PO BID #120 tab 11/29/20 Potassium Chloride [K-Dur] 20 meq PO BIDCM #60 tab 11/29/20 Following Prescriptions Were Given to Patient: Potassium Chloride [K-Dur] 20 meq PO BIDCM #60 tab Transmission Status: Received by [facility] #30 Metoprolol Tartrate [Lopressor (beta acosta)] 25 mg PO BID #120 tab Transmission Status: Received by [facility] #30 Other Amb Orders: Wheeled Walker Location: None Selected Primary Care Physician: Gabrielle Donis MD [Primary Care Provider] - Disposition: Home with Home Health Minutes spent on discharge:: 35 Patient Condition:: Stable Medical Necessity - Tobacco Use Smoking Status: Current every day smoker Tobacco Use: Cigarettes Meaningful Use Info Meaningful Use Diagnoses (Choose all that apply): None applicable OBSV E&M: 76611 Observation care discharge
[2020-11-29] MEDS: Acetaminophen 325 MG Tablet 650 MG PO (13:49)
--- NOTE | 2020-11-29 14:54 | CM.UR ---
Addendum entered by Clementina Simon 11/29/20 15:02: Contacted SUAD April, patient's niece. Explained patient is ready for discharge. States she was just getting ready to head this way. Discussed HHC and she states that she is patient's HCPOA and she would like I to use [facility]. Asked patient if she had a preference and she said no that is fine. Explained to niece that we are going to give them a prescription for a wheeled walker. Recommended since they go to [facility] for her meds to get the walker there. Explained I could arrange for it but they won't deliver it til next week. Explained the patient said she has a wheeled walker that belonged to her mother and so I was wondering if she needs a new one. States that she is not aware that she has one. she verb understanding and agreement. Original Note: Was alerted that his patient is being sent home with HHC and a wheeled walker. Took list of home care into room. Instructed the patient to choose an agency and let me know. Also explained the doctor wrote an RX for a wheeled walker. Patient states she already has a walker that was her mothers. Explained that we'll give her the rx and if she wants/needs a new one--she can get it. Verb understanding. Scarlett Simon RN, CCM.
== END 2020-11-29 16:07 | disposition home health service (06) ==
LOC: ED 14:45 → PCU 15:10
PROVIDERS: Admitting Provider Internal Medicine; Emergency Provider Emergency Medicine; PCP Internal Medicine; Visit Provider Internal Medicine
DX: I47.1 Supraventricular tachycardia (principal); M79.645 Pain in left finger(s); E87.6 Hypokalemia; F17.210 Nicotine dependence, cigarettes, uncomplicated; M81.0 Age-related osteoporosis without current pathological fracture; Z91.81 History of falling
CPT/HCPCS: 36415; 73140; 73590; 80048; 80053; 81001; 83735; 84100; 84484; 85025; 93005; 93306; 96361; 96365; 96366; 96372; 96375; 97162; 97166; 99218; 99251; 99285; 99406; J7030; A4216; G0378; G0463; J0153

== ENCOUNTER 2020-12-10 19:45 | Emergency (ER) | payer MEDICARE, BC, SELFPAY ==
[2020-11-28 17:05] VITALS: BMI 17.9
[2020-12-10 19:47] VITALS: BP 119/57; PULSE 56; RESP 16; TEMP 36.2; O2SAT 96; BMI 17.7
[2020-12-10 19:55] VITALS: BP 119/57; PULSE 53; PULSE 57; RESP 16; RESP 18; TEMP 36.2; O2SAT 96
[2020-12-10 21:56] VITALS: BP 123/72; PULSE 60; RESP 23; O2SAT 98
--- NOTE | 2020-12-10 22:08 | EKG12_ITS ---
Test Reason : DYSRHYTMIA Blood Pressure : / mmHG Vent. Rate : 060 BPM Atrial Rate : 060 BPM P-R Int : 152 ms QRS Dur : 062 ms QT Int : 400 ms P-R-T Axes : 084 083 077 degrees QTc Int : 400 ms Normal sinus rhythm with sinus arrhythmia Normal ECG Confirmed by SUSHIL WEISS, GLADYS ([id number]), brands editor CASSIE JACKSON ([id number]) on 12/15/2020 11:10:35 AM Referred By: MATT Confirmed By:CORA LING MD
--- NOTE | 2020-12-10 22:15 | RAD_ITS ---
HISTORY: PT BROUGHT IN BY FAMILY, FOR FEELING JITTERY, SLIGHT CONFUSION, GENERAL NOT FEELING WELL, UNSTEADINESS, AND LEFT WRIST PAIN STARTING THIS MORNING. ALSO SOB EXAM: XR Chest 1 View: COMPARISON: August 25, 2020 FINDINGS: # of images incl. paperwork: 1 Pulmonary emphysema. Pulmonary hyperexpansion. Paucity of peripheral pulmonary parenchymal perfusion. Central pulmonary arterial enlargement. Severe calcific ASCVD within the aortic arch. No focal airspace disease is perceived Heart is not enlarged. No acute osseous pathology perceived. Pulmonary vascularity is distinct. No effusions. RAD/Chest 1 View (Portable) IMPRESSION: Pulmonary emphysema without acute cardiopulmonary disease perceived. at 2254 Reported and signed by: Juan Rowell MD Electronically Signed: Juan Rowell MD at 22:52 EST Tel , Service support ,
[2020-12-10 22:24] LABS: Absolute Neutrophil Count 6.8 X10^3/uL (2.0-7.7); Basophil% 0.9 % (0-1); Eosinophil# 0.14 X10^3/uL; Eosinophils% 1.3 % (0-5); Hematocrit 47.5 % (37-47); Lymphocyte % 27.7 % (19-41); Mean Corp Hgb Conc 31.6 g/dL (32-36); Mean Corpuscular Hgb 29.9 pg (27.0-32.0); Mean Corpuscular Volume 94.6 fL (81-99); Mean Platelet Vol. 9.9 fl (6.2-12.0); Monocyte# 0.81 X10^3/uL; Monocyte% 7.5 % (0-10); NRBC Flagged by Analyzer 0 % (0-5); Neutrophil # 6.75 X10^3/uL (2.7-7.7); Neutrophil % 62.2 % (47-70); Platelet Count 424 K/mm3 (150-450); RBC Distribution Width CV 13.5 % (11.6-14.6); RBC Distribution Width SD 47.3 fl (35.1-43.9); Red Blood Count 5.02 M/mm3 (4.2-5.4); White Blood Count 10.8 K/mm3 (4.4-11.0)
[2020-12-10 22:49] LABS: ALB/GLOB Ratio 0.8 RATIO (0.9-2.4); AST(SGOT) 32 U/L (15-37); Alanine Aminotransfer ALT/SGPT 33 U/L (13-56); Albumin, Serum 3.5 g/dL (3.2-5.0); Alkaline Phosphatase 133 U/L (45-117); Anion Gap 4 (5-15); BUN 27 mg/dL (7-18); BUN/Creat Ratio 32.9 RATIO (10-20); Calcium,Total 9.6 mg/dL (8.5-10.1); Chloride 104 mmol/L (98-107); Creatinine, Serum 0.82 mg/dL (0.55-1.02); EST Glomerular Filtration Rate 71 mL/min (>60); Est Glom Filt Rate - Afr Amer 86 mL/min (>60); Estimated Creatinine Clearance 41.66 ml/min; Globulin 4.5 g/dL (2.2-4.2); Glucose 99 mg/dL (74-106); Potassium 4.9 mmol/L (3.5-5.1); Sodium Level 140 mmol/L (136-145)
[2020-12-10 22:53] LABS: Bacteria 0 SEEN /hpf (None Seen); Mucous, Urine 0 SEEN /hpf (<or=2+); Red Blood Cells-Urine 0 SEEN /hpf (0-5); Squamous Epithelial Cells - UA 0 SEEN /hpf (5-10)
[2020-12-10 22:56] LABS: Color, Urine Yellow (Yellow); Glucose, Dipstick Normal (Normal); Ketone-Dipstick Negative (Negative); Leukocyte Esterase-Dipstick 100 /ul (Negative); Nitrite-Dipstick Negative (Negative); Occult Blood-Urine Negative /ul (Negative); Protein-Dipstick Negative (Negative); Urine Bilirubin Dipstick Negative (Negative); Urine Clarity Clear (Clear); Urine Urobilinogen Normal (Normal)
[2020-12-10 23:02] LABS: White Blood Cells 0-5 SEEN /hpf (0-5)
[2020-12-10 23:03] LABS: Hyaline Cast 5-10 SEEN /lpf (0-5); Renal Epithelial Cells 0-5 SEEN /hpf (0-5)
[2020-12-10 23:06] VITALS: BP 120/57; PULSE 57; RESP 23; O2SAT 98
[2020-12-10 23:21] VITALS: O2SAT 97
--- NOTE | 2020-12-11 00:30 | ED.DCSUM_ITS ---
History of Present Illness Chief Complaint: General Illness Informant: Patient, Family Onset: Today Context: Gradual Onset Narrative: Patient is an 80-year-old female with history of COPD/emphysema presenting with not feeling well. She states she has been feeling off for past few days and had some increase shortness of breath. She states she does have a cough that is chronic and productive however it is unchanged from her baseline. She states she felt jittery this morning which is abnormal for her. Her niece is at the bedside helps take care of her and is checked on her couple times today. Patient has any associated chest pain, nausea, vomiting or urinary symptoms. She states she has had loose bowel movements but that is normal for her as she has IBS. She has had some chills for the past few days but no reports of fever. She states her appetite's been normal. No sick contacts. She has no other complaints at this time. Past Medical History - Allergies and Home Meds Allergies/Adverse Reactions: Allergies oxycodone [From Percocet] Allergy (Verified 12/10/20 19:47) dizziness prednisolone Allergy (Verified 12/10/20 21:31) Other Primary Care Physician: Gabrielle Donis MD [Primary Care Provider] - Past Medical History: - - COPD, tobacco abuse, SVT Surgical History: cholecystectomy Lives: Alone Smoking Status: Current every day smoker - Family History Paternal Family History: Reports: Heart Disease Review of Systems General: Reports: Chills, Malaise. Denies: Fever, Sweats Eyes: Denies: Visual changes - bilaterally, Diplopia ENT: Denies: Rhinorrhea, Sore throat Cardiovascular: Denies: Chest pain, Palpitations Respiratory: Reports: Dyspnea, Cough, Sputum, Dyspnea on exertion Gastrointestinal: Reports: Diarrhea. Denies: Abdominal pain, Nausea, Vomiting, Melena, Hematochezia Genitourinary: Denies: Dysuria, Hematuria, Frequency Musculoskeletal: Denies: Back pain, Extremity Pain Skin: Denies: Rash, Wounds Neurological: Reports: Weakness - Generalized. Denies: Headache, Numbness Physical Exam Vital Signs/Narrative: Vital Signs Pulse Resp BP Pulse Ox 12/10/20 23:06 57 L 23 H 120/57 L 98 12/10/20 21:56 60 23 H 123/72 H 98 Inital Vital Signs reviewed: Yes General: Well developed, Cachectic, No Acute Distress Head: Normocephalic, Atraumatic Eyes: Perrl, EOMI ENT: Moist mucous membranes, No rhinorrhea Neck: Supple, Nontender, No JVD Cardiovascular: Regular rate, Regular rhythm, No murmurs Respiratory: No distress, Chest nontender, Wheezing, Diminished - At the bases bilaterally Abdomen: Soft, Nontender, Nondistended, Normal bowel sounds. Negative for: Guarding, Rebound tenderness Back: Nontender, Normal Inspection. Negative for: CVA tenderness Extremities: Nontender, No edema Skin: Normal color, No rash Neurological: Alert, Oriented x3, Cranial nerves II-XII grossly intact, Normal Strength, Normal Sensation Psychological: Normal affect, Normal Mood Diagnostic/Tx/Re-eval Chest X-Ray - ED: 1 View, Read by ED Physician, Read by Radiologist, No Acute Disease, - - Hyperinflation Clinical Impression(s) from Imaging Studies Chest X-Ray 12/10/20 22:15 IMPRESSION: Pulmonary emphysema without acute cardiopulmonary disease perceived. at 2254 Reported and signed by: Juan Rowell MD Electronically Signed: Juan Rowell MD at 22:52 EST Tel , Service support , Laboratory Data 12/10/20 12/10/20 12/10/20 21:30 21:30 21:30 WBC 10.8 RBC 5.02 Hgb 15.0 Hct 47.5 H MCV 94.6 MCH 29.9 MCHC 31.6 L RDW Std Deviation 47.3 H RDW Coeff of Loc 13.5 Plt Count 424 MPV 9.9 Immature Gran % (Auto) 0.400 Neut % (Auto) 62.2 Lymph % (Auto) 27.7 [place] % (Auto) 7.5 Eos % (Auto) 1.3 Baso % (Auto) 0.9 Absolute Neuts (auto) 6.8 Absolute Lymphs (auto) 3.00 Nucleated RBC % 0 Sodium 140 Potassium 4.9 Chloride 104 Carbon Dioxide 32.0 Anion Gap 4 L BUN 27 H Creatinine 0.82 Estim Creat Clear Calc 41.66 Est GFR (MDRD) Af Amer 86 Est GFR (MDRD) Non-Af 71 BUN/Creatinine Ratio 32.9 H Glucose 99 Calcium 9.6 Total Bilirubin 0.20 AST 32 ALT 33 Alkaline Phosphatase 133 H Troponin I < 0.015 B-Natriuretic Peptide 33.0 Total Protein 8.0 Albumin 3.5 Globulin 4.5 H Albumin/Globulin Ratio 0.8 L Urine Color Urine Clarity Urine pH Ur Specific [place] Urine Protein Urine Glucose (UA) Urine Ketones Urine Occult Blood Urine Nitrite Urine Bilirubin Urine Urobilinogen Ur Leukocyte Esterase Urine RBC Urine WBC Ur Squamous Epith Cells Ur Renal Epithelial Cell Urine Bacteria Hyaline Casts Urine Mucus 12/10/20 22:40 WBC RBC Hgb Hct MCV MCH MCHC RDW Std Deviation RDW Coeff of Loc Plt Count MPV Immature Gran % (Auto) Neut % (Auto) Lymph % (Auto) [place] % (Auto) Eos % (Auto) Baso % (Auto) Absolute Neuts (auto) Absolute Lymphs (auto) Nucleated RBC % Sodium Potassium Chloride Carbon Dioxide Anion Gap BUN Creatinine Estim Creat Clear Calc Est GFR (MDRD) Af Amer Est GFR (MDRD) Non-Af BUN/Creatinine Ratio Glucose Calcium Total Bilirubin AST ALT Alkaline Phosphatase Troponin I B-Natriuretic Peptide Total Protein Albumin Globulin Albumin/Globulin Ratio Urine Color Yellow Urine Clarity Clear Urine pH 5.0 Ur Specific [place] 1.020 Urine Protein Negative Urine Glucose (UA) Normal Urine Ketones Negative Urine Occult Blood Negative Urine Nitrite Negative Urine Bilirubin Negative Urine Urobilinogen Normal Ur Leukocyte Esterase 100 H Urine RBC 0 SEEN Urine WBC 0-5 SEEN Ur Squamous Epith Cells 0 SEEN Ur Renal Epithelial Cell 0-5 SEEN Urine Bacteria 0 SEEN Hyaline Casts 5-10 SEEN Urine Mucus 0 SEEN - Rhythm Strip Rhythm Strip: Sinus Rhythm Rate: 60 Ectopy: None - EKG Initial EKG Interpretation: Sinus Rhythm, - - Normal sinus rhythm at a rate of 60 Normal axis Normal intervals Normal ST segments Nonspecific T wave inversion in aVL - Medical Decision Making Patient is an 80-year-old female presenting from home for not feeling well. She appears nontoxic in no acute distress. She has normal vital signs. Physical exam is largely unremarkable. She does appear to be quite emphysematous and has wheezing breath sounds but she states she feels that her breathing is at her baseline. Respiratory rate and O2 saturation are normal on room air. Chest x- ray shows hyperinflation but no acute infectious process. Her white blood cell count is normal. She not have any significant lab abnormalities. Urinalysis does show 100 leukoesterase but is not overly consistent with UTI. She denies any urinary symptoms. Urine culture will be sent but she is not started on antibiotics at this time. Patient is ambulated in the emergency room and does well. She states she felt fine during ambulation and did not have any desaturation or abnormal vital signs. Patient be discharged home to follow-up with her primary care doctor. The exact cause of her presentation is not clear however patient is comfortable with outpatient follow-up. Patient is counseled on signs and symptoms requiring return to the emergency room. Patient verbalizes agreement and understand this plan. Patient discharged home in stable and improved condition. ED Disposition - Plan for ED Patient: Disposition: Home or Assisted Living Diagnosis: Malaise and fatigue Instructions: ED Weakness (Uncertain Cause) Referrals: Gabrielle Donis MD [Primary Care Provider] -
[2020-12-11 00:45] VITALS: RESP 18
== END 2020-12-11 00:45 | disposition home or self-care (01) ==
PROVIDERS: Emergency Provider Emergency Medicine; PCP Internal Medicine
DX: R53.81 Other malaise (principal); R53.83 Other fatigue; R06.09 Other forms of dyspnea; R07.9 Chest pain, unspecified; R11.2 Nausea with vomiting, unspecified; J43.9 Emphysema, unspecified; K58.9 Irritable bowel syndrome, unspecified; F17.200 Nicotine dependence, unspecified, uncomplicated; Z79.899 Other long term (current) drug therapy
CPT/HCPCS: 71045; 80053; 81001; 83880; 84484; 85025; 87086; 87088; 93005; 99285; A4216

== ENCOUNTER 2021-10-03 23:12 | Emergency (ER) | payer MEDICARE, BC, SELFPAY ==
--- NOTE | 2021-10-03 00:23 | RAD_ITS ---
STUDY: X-RAY CHEST REASON FOR EXAM: Female, 81 years old. chest pain TECHNIQUE: Single AP portable view of the chest. COMPARISON: None. FINDINGS: The lungs are clear and slightly hyperexpanded. There is no demonstrated pleural abnormality. Normal size heart. Normal mediastinum and landon. Normal visualized pulmonary arteries. There is atherosclerotic calcification of the aortic arch with tortuosity. There is demineralization of the osseous structures. Unremarkable visualized ribs, clavicles, and shoulders. There is no demonstrated abnormality of the visualized soft tissue structures of the upper abdomen. RAD/Chest 1 View (Portable) IMPRESSION: No acute cardiopulmonary disease. Electronically Signed: Kaleigh Esquivel MD at 1:15 EST , Service support ,
[2021-10-03 23:12] VITALS: BP 139/66; PULSE 65; RESP 18; TEMP 36.5; O2SAT 100; BMI 18.7
--- NOTE | 2021-10-03 23:54 | EKG12_ITS ---
Test Reason : DYSRHYTHMIA Blood Pressure : / mmHG Vent. Rate : 066 BPM Atrial Rate : 066 BPM P-R Int : 168 ms QRS Dur : 082 ms QT Int : 392 ms P-R-T Axes : 088 076 077 degrees QTc Int : 410 ms Sinus rhythm with marked sinus arrhythmia Otherwise normal ECG Confirmed by SHAYNA WEISS, STEFAN ([id number]), sports editor CASSIE JACKSON ([id number]) on 10/05/2021 1:40:12 PM Referred By: TORRIE Confirmed By:STEFAN CORRAL MD
--- NOTE | 2021-10-03 23:55 | ED.VIS.DYS ---
HPI History of Present Illness Chief Complaint: Shortness of Breath Informant: patient and family Onset/Context/Timing Onset: Days Context: gradual Timing: Continuous Current Severity: Mild Maximum Severity: Mild Worsened by: Nothing Relieved by: Nothing Associated Symptoms cough; Negative for white sputum, yellow sputum or green sputum Chest Pain: Positive for None Narrative Narrative: 81-year-old female history of COPD not on home O2. States she has been dyspneic since yesterday. States the cough is changes nonproductive. No fever or chills. No chest pain. No hemoptysis. She was vaccinated for Covid. No history of DVT or PE. No recent travel, surgery or immobilization. No leg pain or swelling. PE Risk Factors: Negative for Cancer, OCP + Smoking + > 35, Prior DVT or PE, Recent immobilization, Recent surgery and Recent travel Prior similar symptoms: Yes Recent Illness/Hospitalization: No PFSH PFSH Home Medications albuterol sulfate 2 puff IH Q6H PRN PRN 08/25/20 [History Last Taken Unknown] alendronate 70 mg PO SALVADOR 08/25/20 [History Last Taken Unknown] furosemide [Lasix] 40 mg PO BID 11/28/20 [History Last Taken 11/28/20] metoprolol tartrate 25 mg PO BID #120 tab 11/29/20 [Rx Last Taken Unknown] potassium chloride 20 meq PO BIDCM #60 tab 11/29/20 [Rx Last Taken Unknown] budesonide [Pulmicort] 0.5 mg IH BID 12/10/20 [History Last Taken Unknown] formoterol fumarate [Perforomist] 20 mcg INHALATION BID 12/10/20 [History Last Taken Unknown] methylprednisolone See Rx Instructions .ROUTE .COMPLEX 10/04/21 [History Last Taken Unknown] Allergy/AdvReac Type Severity Reaction Status Date / Time oxycodone [From Percocet] Allergy dizziness Verified 10/03/21 23:14 prednisolone Allergy Other Verified 10/03/21 23:14 Social History Smoking Status: Current every day smoker tobacco type: cigarettes ROS ROS ED ROS Narrative Cough. Shortness of breath. No chest pain. No hemoptysis. No fever. Review of Systems ROS Unobtainable: Denies due to encephalopathy Constitutional Constitutional ED: Denies chills or fever(s) Eyes Eyes: Denies change in vision ENT ENT ED: Denies ear pain Cardiovascular Cardiovascular: Denies chest pain or palpitations Respiratory/Chest Respiratory/Chest: Reports cough and dyspnea; Denies sputum Gastrointestinal Gastrointestinal: Denies abdominal pain, diarrhea, melena, nausea or vomiting Genitourinary Genitourinary ED: Denies dysuria Musculoskeletal Musculoskeletal: Denies myalgias Integumentary Denies rash Neurologic Neurologic: Denies headache(s) Psychiatric Psychiatric: Denies depression Endocrine Endocrinology: Denies polyuria Hematologic/Lymphatic Hematologic/Lymphatic: Denies easy bruising Allergic/Immunologic Allergic/Immunologic ED: Denies urticaria EXAM Physical Exam Narrative Exam Narrative: 81-year-old female no acute distress. Vital signs stable afebrile. Pulse ox 100% on room air no hypoxia. H EENT exam unremarkable. Neck nontender. No lymphadenopathy. No JVD. Lungs clear to auscultation bilaterally. Heart regular rhythm no murmur. Rate about 65. Chest wall nontender. Abdomen soft nontender. Moving all 4 extremities. Calves are nontender without edema or cords. Back nontender. Neurologically she is awake and alert and moving all 4 extremities. No focal motor deficits. Const Vital Signs: 10/03/21 23:12 10/04/21 00:06 10/04/21 00:17 Temperature 97.7 F L Temperature Source Oral Pulse Rate 65 Respiratory Rate 18 Respiratory Effort Short of Breath Blood Pressure 139/66 H Blood Pressure Mean 90 Pulse Ox 100 Oxygen Delivery Method Room Air Room Air Room Air 10/04/21 02:12 Temperature Temperature Source Pulse Rate 65 Respiratory Rate 20 H Respiratory Effort Blood Pressure 125/68 H Blood Pressure Mean 87 Pulse Ox 98 Oxygen Delivery Method Room Air Positive well nourished and well developed; Negative for obese, cachectic, contractures or unkempt General Appearance ED: well developed and NAD; Negative for unkempt, cachectic, contractures or pallor Nutritional Appearance: Negative for cachectic or obese HEENT Reports moist mucous membranes atraumatic; Negative for trauma or tenderness Eyes PERRL and EOMs intact bilaterally Neck no lymphadenopathy, supple, no meningeal signs and no JVD General: Negative for tenderness Resp normal respiratory effort and clear to auscultation bilaterally Auscultation: Negative for rales, rhonchi or wheezes Cardio regular rate, regular rhythm, S1 normal heart sound, S2 normal heart sound and no murmurs GI non-tender, non-distended and no masses Auscultation: normoactive bowel sounds Palpation: soft; Negative for tender, guarding or rebound tenderness present Back/Spine no CVA tenderness and normal to inspection General Back: Negative for CVA tenderness or tenderness Extremity normal to inspection General Extremety ED: Negative for edema or tenderness General Extremity: Negative for edema Neuro oriented x3 Sensorium / Orientation: alert, oriented to person, oriented to place and oriented to time; Negative for orientation impaired, confused, lethargic or stuporous Motor Exam: strength 5/5 throughout Psych mental status grossly normal Appearance: Negative for unkempt Attitude: No agitated Mood & Affect: Negative for depressed, anxious or tearful Thought Process: normal thought process Skin no wounds General Skin Exam: Negative for jaundice or pallor Lesions: no lesions Rashes: no rashes MDM MDM MDM Narrative Medical decision making narrative: 81-year-old no acute distress. With a cough and dyspnea. Cardiac and pulmonary work-up with a Covid test. Clinically she is stable and in no distress. Repeat exam patient is resting comfortably at 2:55 AM. Went over all test results with her and family at bedside. They are comfortable with her being discharged home. She has a nebulizer at home and is currently on oral steroids. Lab Data Attestation: I reviewed the patient's lab results. Lab results narrative: CBC shows normal white count 13.9. Hemoglobin 13. Platelets 371. Labs: Laboratory Results - last 24 hr 10/04/21 10/04/21 00:15 00:15 WBC 13.9 H RBC 4.14 L Hgb 13.0 Hct 39.1 MCV 94.4 MCH 31.4 MCHC 33.2 RDW Std Deviation 50.4 H RDW Coeff of Loc 14.4 Plt Count 371 MPV 9.8 Immature Gran % (Auto) 0.500 Neut % (Auto) 76.1 H Lymph % (Auto) 17.9 L [place] % (Auto) 5.2 Eos % (Auto) 0.0 Baso % (Auto) 0.3 Absolute Neuts (auto) 10.6 H Absolute Lymphs (auto) 2.49 Nucleated RBC % 0 Sodium 144 Potassium 4.1 Chloride 110 H Carbon Dioxide 29.0 Anion Gap 5 BUN 19 H Creatinine 1.02 Estim Creat Clear Calc 34.71 Est GFR (MDRD) Af Amer 67 Est GFR (MDRD) Non-Af 55 L BUN/Creatinine Ratio 18.6 Glucose 95 Calcium 8.8 Troponin I High Sens 10 Radiography Chest X-Ray - ED: 1 View, Read by ED Physician, Heart, Lungs, Mediastinum, Bony Structures, No Acute Disease and Chronic Changes Diagnostic Testing: Clinical Impression(s) from Imaging Studies Chest X-Ray 10/03/21 00:23 IMPRESSION: No acute cardiopulmonary disease. Electronically Signed: Kaleigh Esquivel MD at 1:15 EST , Service support , Chest strain portable 1 view shows no acute abnormality. No pneumothorax. No infiltrate. Normal cardiac silhouette. No CHF or pleural effusions. Interpreted by myself and the radiologist. Rhythm Strip Rhythm Strip: Sinus Rhythm Rate: 66 Ectopy: None EKG Initial EKG: Attestation: I personally reviewed and interpreted this EKG as follows: Interpretation: Sinus Rhythm and No Acute Injury Pattern Comments: Normal sinus rhythm rate of 66 no acute signs of KS nor ischemia. Discharge Plan Triage Chief Complaint: Shortness of Breath ED Provider: Manuel Pinto Dx/Rx/DC Orders Clinical Impression: Acute dyspnea, COPD exacerbation Instructions: COPD: Chronic Coughing Prescriptions: No Action alendronate 70 MG tablet 70 mg PO SALVADOR RF: 0 albuterol sulfate 90 mcg/actuation HFA aerosol inhaler 2 puff IH Q6H PRN PRN (Reason: Asthma) RF: 0 furosemide [Lasix] 20 MG tablet 40 mg PO BID RF: 0 potassium chloride 20 MEQ tablet 20 meq PO BIDCM Qty: 60 RF: 0 metoprolol tartrate 25 MG tablet 25 mg PO BID Qty: 120 RF: 0 budesonide [Pulmicort] 0.5 MG/2 ML suspension for nebulization 0.5 mg IH BID RF: 0 formoterol fumarate [Perforomist] 20 MCG/2 ML solution for nebulization 20 mcg INHALATION BID RF: 0 methylprednisolone 4 mg tablets,dose pack See Rx Instructions .ROUTE .COMPLEX RF: 0 Primary Care Provider: Gabrielle Donis Referrals: Gabrielle Donis MD [Primary Care Provider] - 3-5 Days if not improving Activity Restrictions/Additional Instructions: Your labs, chest x-ray and EKG tonight look good. Follow-up with your primary care physician if not improving. Finish your home steroids and your nebulizer treatments as needed. Return emergency department if feeling a lot worse. Disposition Disposition: Home, Self Care
[2021-10-04 00:17] VITALS: O2SAT 98
[2021-10-04 00:22] LABS: Absolute Lymphocyte Count 2.49 X10^3/uL (0.83-4.51); Absolute Neutrophil Count 10.6 X10^3/uL (2.0-7.7); Basophil# 0.04 X10^3/uL; Basophil% 0.3 % (0-1); Hematocrit 39.1 % (37-47); Lymphocyte # 2.49 X10^3/ul (0.83-4.51); Lymphocyte % 17.9 % (19-41); Mean Corp Hgb Conc 33.2 g/dL (32-36); Mean Corpuscular Hgb 31.4 pg (27.0-32.0); Mean Corpuscular Volume 94.4 fL (81-99); Mean Platelet Vol. 9.8 fl (6.2-12.0); Monocyte# 0.73 X10^3/uL; Monocyte% 5.2 % (0-10); NRBC Flagged by Analyzer 0 % (0-5); Neutrophil % 76.1 % (47-70); Platelet Count 371 K/mm3 (150-450); RBC Distribution Width CV 14.4 % (11.6-14.6); RBC Distribution Width SD 50.4 fl (35.1-43.9); Red Blood Count 4.14 M/mm3 (4.2-5.4); White Blood Count 13.9 K/mm3 (4.4-11.0)
[2021-10-04 00:42] LABS: Anion Gap 5 (5-15); BUN 19 mg/dL (7-18); BUN/Creat Ratio 18.6 RATIO (10-20); Calcium,Total 8.8 mg/dL (8.5-10.1); Chloride 110 mmol/L (98-107); Creatinine, Serum 1.02 mg/dL (0.55-1.02); EST Glomerular Filtration Rate 55 mL/min (>60); Est Glom Filt Rate - Afr Amer 67 mL/min (>60); Estimated Creatinine Clearance 34.71 ml/min; Glucose 95 mg/dL (74-106); Potassium 4.1 mmol/L (3.5-5.1); Sodium Level 144 mmol/L (136-145); Troponin-I HS 10 pg/mL (3.0-54.0)
[2021-10-04 02:12] VITALS: BP 125/68; PULSE 65; RESP 20; O2SAT 98
== END 2021-10-04 03:12 | disposition home or self-care (01) ==
PROVIDERS: Emergency Provider Emergency Medicine; PCP Internal Medicine
DX: J44.1 Chronic obstructive pulmonary disease with (acute) exacerbation (principal); Z20.822 Contact with and (suspected) exposure to COVID-19; F17.210 Nicotine dependence, cigarettes, uncomplicated; Z79.51 Long term (current) use of inhaled steroids; Z79.52 Long term (current) use of systemic steroids; Z79.899 Other long term (current) drug therapy
CPT/HCPCS: 71045; 80048; 84484; 85025; 87426; 93005; 99285; A4216

== ENCOUNTER 2021-11-22 16:09 | Emergency (ER) | payer MEDICARE, SELFPAY ==
[2021-11-22 16:11] VITALS: BP 125/71; PULSE 76; RESP 18; TEMP 36.7; O2SAT 94; BMI 18.6
[2021-11-22 16:25] VITALS: O2SAT 97
--- NOTE | 2021-11-22 16:29 | EDS_ITS ---
HPI History of Present Illness Chief Complaint: Shortness of Breath Informant: patient and family Narrative Narrative: 81-year-old female brought to the emergency department with chief complaint of shortness of breath. Patient notes that she has a history of COPD currently sees Dr. Fox from pulmonology and is not on home oxygen. She states that for the past week she has felt short of breath. She states that she has not really had a cough or sputum production. No fevers. She states nothing is really changed over the past week. Brother states that today he felt that she should come and get evaluated. She states her symptoms have not really been bothersome to her and she has not felt the need to contact her doctors. There is nothing different about her symptoms today compared to yesterday or the day before. [facility] Medical History COPD (chronic obstructive pulmonary disease) Home Medications albuterol sulfate 2 puff IH Q6H PRN PRN 08/25/20 [History Last Taken Unknown] alendronate 70 mg PO SALVADOR 08/25/20 [History Last Taken Unknown] furosemide [Lasix] 40 mg PO BID 11/28/20 [History Last Taken 11/28/20] metoprolol tartrate 25 mg PO BID #120 tab 11/29/20 [Rx Last Taken Unknown] potassium chloride 20 meq PO BIDCM #60 tab 11/29/20 [Rx Last Taken Unknown] budesonide [Pulmicort] 0.5 mg IH BID 12/10/20 [History Last Taken Unknown] formoterol fumarate [Perforomist] 20 mcg INHALATION BID 12/10/20 [History Last Taken Unknown] methylprednisolone See Rx Instructions .ROUTE .COMPLEX 10/04/21 [History Last Taken Unknown] methylprednisolone 4 mg PO UD #1 box 11/22/21 [Rx Last Taken Unknown] Allergy/AdvReac Type Severity Reaction Status Date / Time oxycodone [From Percocet] Allergy dizziness Verified 11/22/21 16:14 prednisolone Allergy Other Verified 11/22/21 16:14 Social History (Updated 11/22/21 @ 16:[address] Silvestre Adkins DO) current gender identity: female Smoking Status: Current every day smoker tobacco type: cigarettes ROS ROS ED Constitutional Constitutional ED: Denies chills or weight loss Eyes Eyes: Denies change in vision or diplopia ENT ENT ED: Denies ear pain, rhinorrhea or sore throat Cardiovascular Cardiovascular: Denies chest pain, orthopnea, palpitations or racing heartbeat Respiratory/Chest Respiratory/Chest: Reports dyspnea; Denies cough, orthopnea or sputum Gastrointestinal Gastrointestinal: Denies abdominal pain, diarrhea, nausea or vomiting Genitourinary Genitourinary ED: Denies dysuria, hematuria or urinary frequency Musculoskeletal Musculoskeletal: Denies arthralgias or myalgias Integumentary Denies abscess or rash Neurologic Neurologic: Denies headache(s) or weakness Psychiatric Psychiatric: Denies anxiety, depression, suicidal ideation or suicidal thoughts Endocrine Endocrinology: Denies polydipsia, polyphagia or polyuria Allergic/Immunologic Allergic/Immunologic ED: Denies mouth swelling, tongue swelling or urticaria EXAM Physical Exam Const Vital Signs: 11/22/21 16:11 11/22/21 16:25 11/22/21 16:39 Temperature 98.0 F Temperature Source Temporal Pulse Rate 76 82 Respiratory Rate 18 21 H Respiratory Effort Normal Respiratory Depth Normal Respiratory Pattern Normal Blood Pressure 125/71 H Blood Pressure Mean 89 Pulse Ox 94 98 Oxygen Delivery Method Room Air Room Air Room Air Positive well nourished and well developed General Appearance ED: well developed HEENT Reports normocephalic, head/scalp atraumatic, TM's clear and moist mucous membranes Negative for trauma Tympanic Membrane ED: Yes TM's clear Eyes PERRL and EOMs intact bilaterally Neck no lymphadenopathy, supple and no JVD Resp normal respiratory effort Auscultation: wheezes expiratory wheezes Cardio regular rate, regular rhythm and no murmurs GI normal to inspection, nondistended, normoactive bowel sounds and non-tender Palpation: soft Back/Spine no CVA tenderness and normal ROM Extremity normal to inspection General Extremety ED: Negative for edema General Extremity: Negative for edema Neuro oriented x3 and CN's II-XII intact bilaterally Sensorium / Orientation: alert Motor Exam: strength 5/5 throughout Psych mental status grossly normal Mood & Affect: Negative for depressed or tearful Skin no rashes or lesions noted and no wounds MDM MDM MDM Narrative Medical decision making narrative: Mitral rotation of the correct chest x-ray is chronic changes but no acute disease. Patient received a DuoNeb and albuterol. Repeat lung exam shows her to be 93% on room air and improved aeration. Patient will be prescribed Medrol as she does not know if she is allergic to just prednisolone or to prednisone also. Would recommend her doing aerosols every 2 to 3 to 4 hours. She is comfortable with this plan. Discharge Plan Triage Chief Complaint: Shortness of Breath ED Provider: Silvestre Adkins Dx/Rx/DC Orders Clinical Impression: Asthma exacerbation in COPD Instructions: ED COPD Flare Prescriptions: New methylprednisolone [methylprednisolone] 4 MG tablets,dose pack 4 mg PO UD Qty: 1 RF: 0 No Action alendronate 70 MG tablet 70 mg PO SALVADOR RF: 0 albuterol sulfate 90 mcg/actuation HFA aerosol inhaler 2 puff IH Q6H PRN PRN (Reason: Asthma) RF: 0 furosemide [Lasix] 20 MG tablet 40 mg PO BID RF: 0 potassium chloride 20 MEQ tablet 20 meq PO BIDCM Qty: 60 RF: 0 metoprolol tartrate 25 MG tablet 25 mg PO BID Qty: 120 RF: 0 budesonide [Pulmicort] 0.5 MG/2 ML suspension for nebulization 0.5 mg IH BID RF: 0 formoterol fumarate [Perforomist] 20 MCG/2 ML solution for nebulization 20 mcg INHALATION BID RF: 0 methylprednisolone 4 mg tablets,dose pack See Rx Instructions .ROUTE .COMPLEX RF: 0 Primary Care Provider: Gabrielle Donis Referrals: Gabrielle Donis MD [Primary Care Provider] - 3-5 Days Disposition Disposition: Home, Self Care
--- NOTE | 2021-11-22 16:32 | RAD_ITS ---
STUDY: X-RAY CHEST REASON FOR EXAM: Female, 81 years old. sob TECHNIQUE: Frontal view COMPARISON: 10/04/2021 FINDINGS: The lungs are clear and expanded. There is no demonstrated pleural abnormality. Normal size heart. Normal mediastinum and landon. Normal visualized pulmonary arteries. Calcified aortic arch and descending thoracic aorta. Normal visualized thoracic spine. Possible old injury of the right humerus. There is no demonstrated abnormality of the visualized soft tissue structures of the upper abdomen. RAD/Chest 1 View (Portable) IMPRESSION: No acute pulmonary pathology of the chest. Electronically Signed: Pawel Martin DO at 17:55 EST Tel [phone], Service support ,
[2021-11-22] MEDS: Ipratropium/Albuterol Sulfate 3 ML AMPUL.NEB INHALATION (16:38)
[2021-11-22 16:39] VITALS: PULSE 82; RESP 21; RESP 24; O2SAT 98
[2021-11-22 17:21] VITALS: O2SAT 94
== END 2021-11-22 18:05 | disposition home or self-care (01) ==
PROVIDERS: Emergency Provider Emergency Medicine; PCP Internal Medicine; Visit Provider Emergency Medicine
DX: J44.1 Chronic obstructive pulmonary disease with (acute) exacerbation (principal); F17.210 Nicotine dependence, cigarettes, uncomplicated
CPT/HCPCS: 71045; 94640; 99251; 99283; G0463

== ENCOUNTER 2022-09-03 22:52 | Emergency (ER) | payer MEDICARE, SELFPAY ==
[2022-09-03 22:53] VITALS: BP 129/91; PULSE 86; RESP 18; TEMP 36.2; O2SAT 93; BMI 21.1
--- NOTE | 2022-09-03 23:47 | EX.ED.DYSGE1 ---
HPI History of Present Illness Chief Complaint: Weakness Informant: patient Onset/Context/Timing Onset: Today (Approximately 30 minutes prior to arrival) Context: Gradual Onset Timing: Continuous Quality: Dyspnea Location: Chest Worsened by: Nothing Relieved by: Nothing Narrative Narrative: Patient presents with shortness of breath and weakness that began tonight. Patient states it began approximately 30 minutes prior to arrival. Patient states it came on gradually. Patient states it has been constant. Patient states nothing makes it better nothing makes it worse. Patient denies any chest pain. Patient denies any cough. Patient denies any fevers or chills. Patient does admit to some tingling in her lower legs but denies any weakness. [facility] Medical History (Updated 09/04/22 @ 03:[address] Bradley Champion, DO) COPD (chronic obstructive pulmonary disease) Home Medications albuterol sulfate 90 mcg/actuation aerosol inhaler 2 puff IH Q6H PRN PRN Asthma 08/25/20 [History Last Taken Unknown] alendronate 70 mg tablet 70 mg PO SALVADOR bones 08/25/20 [History Last Taken Unknown] furosemide 20 mg tablet (Lasix) 40 mg PO BID fluid 11/28/20 [History Last Taken 11/28/20] metoprolol tartrate 25 mg tablet 25 mg PO BID #120 tabs 11/29/20 [Rx Last Taken Unknown] potassium chloride 20 mEq tablet,extended release(part/cryst) 20 meq PO BIDCM #60 tabs 11/29/20 [Rx Last Taken Unknown] budesonide 0.5 mg/2 mL suspension for nebulization (Pulmicort) 0.5 mg IH BID 12/10/20 [History Last Taken Unknown] formoterol fumarate 20 mcg/2 mL solution for nebulization (Perforomist) 20 mcg inhalation BID 12/10/20 [History Last Taken Unknown] methylprednisolone 4 mg tablets in a dose pack See Rx Instructions .Route .COMPLEX 10/04/21 [History Last Taken Unknown] methylprednisolone 4 mg tablets in a dose pack 4 mg PO UD ##1 11/22/21 [Rx Last Taken Unknown] Allergy/AdvReac Type Severity Reaction Status Date / Time oxycodone [From Percocet] Allergy dizziness Verified 09/04/22 01:02 prednisolone Allergy Other Verified 09/04/22 01:02 Surgical History Hx of cholecystectomy Social History Smoking Status: Current every day smoker tobacco type: cigarettes ROS ROS ED Constitutional Constitutional ED: Denies chills or fever(s) Eyes Eyes: Denies blurry vision or change in vision ENT ENT ED: Denies rhinorrhea or sore throat Cardiovascular Cardiovascular: Denies chest pain or palpitations Respiratory/Chest Respiratory/Chest: Reports dyspnea; Denies cough Gastrointestinal Gastrointestinal: Denies nausea or vomiting Genitourinary Genitourinary ED: Denies dysuria or hematuria Musculoskeletal Musculoskeletal: Denies back pain or neck pain Integumentary Denies abscess or rash Neurologic Neurologic: Reports paresthesias RLE and LLE; Denies headache(s) or weakness Allergic/Immunologic Allergic/Immunologic ED: Denies mouth swelling or urticaria EXAM Physical Exam Const Vital Signs: 09/03/22 22:53 09/03/22 22:53 09/04/22 00:58 Temperature 97.2 F L 97.2 F L Temperature Source Temporal Temporal Pulse Rate 86 86 65 Respiratory Rate 18 18 19 H Respiratory Effort Respiratory Pattern Blood Pressure 129/91 H 129/91 H 130/66 H Blood Pressure Mean 103 103 87 Pulse Ox 93 93 91 Oxygen Delivery Method Room Air Room Air Room Air 09/04/22 00:59 09/04/22 02:04 Temperature Temperature Source Pulse Rate 63 Respiratory Rate 18 Respiratory Effort Normal Non-Labored Respiratory Pattern Normal Blood Pressure 116/62 Blood Pressure Mean 80 Pulse Ox 92 Oxygen Delivery Method Room Air Positive well nourished and well developed General Appearance ED: well developed HEENT Reports moist mucous membranes Neck supple and no JVD Resp normal respiratory effort and clear to auscultation bilaterally Cardio regular rate, regular rhythm and no murmurs GI normal to inspection, nondistended, normoactive bowel sounds and non-tender Palpation: soft Extremity normal to inspection General Extremety ED: Negative for edema or tenderness General Extremity: Negative for edema Neuro oriented x3, CN's II-XII intact bilaterally and no sensory deficits noted Sensorium / Orientation: alert Motor Exam: strength 5/5 throughout Psych mental status grossly normal Skin no rashes or lesions noted MDM MDM MDM Narrative Medical decision making narrative: EKG was obtained. On my interpretation, it showed a normal sinus rhythm with a rate of 68. [place] interval, QRS interval, and QTc intervals were all normal. [place] was normal. There are no acute ST or T wave changes. Portable 1 view chest x-ray was obtained. On my interpretation, lung quiles are clear. There is normal cardiac silhouette. Bony thorax is normal. There is no acute process noted. Radiologist also interpreted the x-ray and agrees. CBC shows a mild leukocytosis of 13.4. This is consistent with prior results. Comprehensive metabolic profile was essentially within normal limits. Initial high-sensitivity troponin was normal at 6. 2-hour repeat high-sensitivity troponin was normal at 7. Urinalysis shows occult blood of 250 with 25-50 red blood cells. There is no evidence of urinary tract infection. Patient was ambulated here in the emergency department. Patient ambulated without difficulty. Patient was instructed to follow-up with her primary care physician in 5 to 7 days. Patient and family understood and were agreeable with the plan. All questions were answered. Lab Data Attestation: I reviewed the patient's lab results. Labs: Laboratory Results - last 24 hr 09/03/22 09/03/22 09/04/22 23:12 23:12 02:20 WBC 13.4 H RBC 4.47 Hgb 14.1 Hct 44.1 MCV 98.7 MCH 31.5 MCHC 32.0 RDW Std Deviation 56.0 H RDW Coeff of Loc 15.4 H Plt Count 349 MPV 11.0 Immature Gran % (Auto) 0.200 Neut % (Auto) 64.2 Lymph % (Auto) 26.0 [place] % (Auto) 6.6 Eos % (Auto) 2.4 Baso % (Auto) 0.6 Absolute Neuts (auto) 8.6 H Absolute Lymphs (auto) 3.49 Nucleated RBC % 0 Sodium 143 Potassium 3.3 L Chloride 107 Carbon Dioxide 28.0 Anion Gap 8 BUN 19 H Creatinine 0.81 Estim Creat Clear Calc 48.40 Est GFR (MDRD) Af Amer 86 Est GFR (MDRD) Non-Af 71 BUN/Creatinine Ratio 23.4 H Glucose 101 Calcium 9.3 Total Bilirubin 0.30 AST 23 ALT 22 Alkaline Phosphatase 119 H Troponin I High Sens 6 Cancelled Total Protein 7.4 Albumin 3.4 Globulin 4.0 Albumin/Globulin Ratio 0.8 L Urine Color Urine Clarity Urine pH Ur Specific [place] Urine Protein Urine Glucose (UA) Urine Ketones Urine Occult Blood Urine Nitrite Urine Bilirubin Urine Urobilinogen Ur Leukocyte Esterase Urine RBC Urine WBC Ur Squamous Epith Cells Urine Bacteria Urine Mucus 09/04/22 09/04/22 02:36 02:40 WBC RBC Hgb Hct MCV MCH MCHC RDW Std Deviation RDW Coeff of Loc Plt Count MPV Immature Gran % (Auto) Neut % (Auto) Lymph % (Auto) [place] % (Auto) Eos % (Auto) Baso % (Auto) Absolute Neuts (auto) Absolute Lymphs (auto) Nucleated RBC % Sodium Potassium Chloride Carbon Dioxide Anion Gap BUN Creatinine Estim Creat Clear Calc Est GFR (MDRD) Af Amer Est GFR (MDRD) Non-Af BUN/Creatinine Ratio Glucose Calcium Total Bilirubin AST ALT Alkaline Phosphatase Troponin I High Sens 7 Total Protein Albumin Globulin Albumin/Globulin Ratio Urine Color Yellow Urine Clarity Clear Urine pH 6.0 Ur Specific [place] 1.020 Urine Protein 30 H Urine Glucose (UA) Normal Urine Ketones Negative Urine Occult Blood 250 H Urine Nitrite Negative Urine Bilirubin Negative Urine Urobilinogen Normal Ur Leukocyte Esterase 25 H Urine RBC 25-50 SEEN Urine WBC 0-5 SEEN Ur Squamous Epith Cells 0 SEEN Urine Bacteria RARE Urine Mucus 0 SEEN Radiography Chest X-Ray - ED: 1 View, Read by ED Physician, Read by Radiologist and No Acute Disease Diagnostic Testing: Clinical Impression(s) from Imaging Studies Chest X-Ray 09/04/22 00:00 IMPRESSION: No acute cardiopulmonary disease. Electronically Signed: Devante Casillas MD at 2:06 EDT , EKG Initial EKG: Attestation: I personally reviewed and interpreted this EKG as follows: Interpretation: Sinus Rhythm (68) and No Acute Injury Pattern Prior EKG tracings: available for review Prior: Unchanged (10/04/2021) Discharge Plan Triage Chief Complaint: Weakness ED Provider: Bradley Champion Dx/Rx/DC Orders Clinical Impression: General weakness, Dyspnea Instructions: ED Dyspnea, ED Weakness (Uncertain Cause) Prescriptions: No Action alendronate 70 MG tablet 70 mg PO SALVADOR albuterol sulfate 90 mcg/actuation HFA aerosol inhaler 2 puff IH Q6H PRN PRN (Reason: Asthma) Label Comments: Inhale 2 Puffs as instructed every 4 hours as needed. furosemide [Lasix] 20 MG tablet 40 mg PO BID potassium chloride 20 MEQ tablet 20 meq PO BIDCM Qty: 60 0RF metoprolol tartrate 25 MG tablet 25 mg PO BID Qty: 120 0RF budesonide [Pulmicort] 0.5 MG/2 ML suspension for nebulization 0.5 mg IH BID formoterol fumarate [Perforomist] 20 MCG/2 ML solution for nebulization 20 mcg INHALATION BID methylprednisolone 4 mg tablets,dose pack See Rx Instructions .ROUTE .COMPLEX Rx Instructions: taper over 1 week methylprednisolone [methylprednisolone] 4 MG tablets,dose pack 4 mg PO UD Qty: 1 0RF Primary Care Provider: Gabrielle Donis Referrals: Gabrielle Donis MD [Primary Care Provider] - 3-5 Days Disposition Disposition: Home, Self Care
--- NOTE | 2022-09-04 | RAD_ITS ---
INDICATION: Weakness EXAMINATION/TECHNIQUE: X-RAY - XR Chest 1 View COMPARISON: 11/22/2021 FINDINGS: LINES/DEVICES: None. LUNGS: No consolidation, edema or effusion. No pneumothorax. MEDIASTINUM AND CARDIOVASCULAR STRUCTURES: Atherosclerotic calcifications and cardiomediastinal contours, similar compared to the prior. BONES AND SOFT TISSUES: Unremarkable. RAD/Chest 1 View (Portable) IMPRESSION: No acute cardiopulmonary disease. Electronically Signed: Devante Casillas MD at 2:06 EDT ,
[2022-09-04 00:07] LABS: Absolute Lymphocyte Count 3.49 X10^3/uL (0.83-4.51); Absolute Neutrophil Count 8.6 X10^3/uL (2.0-7.7); Basophil# 0.08 X10^3/uL; Basophil% 0.6 % (0-1); Eosinophil# 0.32 X10^3/uL; Eosinophils% 2.4 % (0-5); Hematocrit 44.1 % (37-47); Hemoglobin 14.1 g/dL (12.0-15.0); Lymphocyte # 3.49 X10^3/ul (0.83-4.51); Mean Corpuscular Hgb 31.5 pg (27.0-32.0); Mean Corpuscular Volume 98.7 fL (81-99); Monocyte# 0.88 X10^3/uL; Monocyte% 6.6 % (0-10); NRBC Flagged by Analyzer 0 % (0-5); Neutrophil # 8.63 X10^3/uL (2.7-7.7); Neutrophil % 64.2 % (47-70); Platelet Count 349 K/mm3 (150-450); RBC Distribution Width CV 15.4 % (11.6-14.6); Red Blood Count 4.47 M/mm3 (4.2-5.4); White Blood Count 13.4 K/mm3 (4.4-11.0)
[2022-09-04 00:26] LABS: ALB/GLOB Ratio 0.8 RATIO (0.9-2.4); AST(SGOT) 23 U/L (15-37); Alanine Aminotransfer ALT/SGPT 22 U/L (13-56); Albumin, Serum 3.4 g/dL (3.2-5.0); Alkaline Phosphatase 119 U/L (45-117); Anion Gap 8 (5-15); BUN 19 mg/dL (7-18); BUN/Creat Ratio 23.4 RATIO (10-20); Calcium,Total 9.3 mg/dL (8.5-10.1); Chloride 107 mmol/L (98-107); Creatinine, Serum 0.81 mg/dL (0.55-1.02); EST Glomerular Filtration Rate 71 mL/min (>60); Est Glom Filt Rate - Afr Amer 86 mL/min (>60); Glucose 101 mg/dL (74-106); Potassium 3.3 mmol/L (3.5-5.1); Protein, Total 7.4 g/dL (6.4-8.2); Sodium Level 143 mmol/L (136-145); Troponin-I HS (w/2H Reflex) 6 pg/mL (3.0-54.0)
[2022-09-04 00:58] VITALS: BP 130/66; PULSE 65; RESP 19; O2SAT 91
--- NOTE | 2022-09-04 00:59 | EKG12_ITS ---
Test Reason : WEAKNESS Blood Pressure : / mmHG Vent. Rate : 068 BPM Atrial Rate : 068 BPM P-R Int : 168 ms QRS Dur : 090 ms QT Int : 398 ms P-R-T Axes : 090 073 070 degrees QTc Int : 423 ms Normal sinus rhythm Incomplete right bundle branch block Confirmed by SAMARA WEISS, CHANEL ([id number]), telegraph editor CASSIE JACKSON ([id number]) on 09/08/2022 11:08:12 AM Referred By: KANDICE Confirmed By:CHANEL PASCUAL MD
[2022-09-04 02:04] VITALS: BP 116/62; PULSE 63; RESP 18; O2SAT 92
[2022-09-04 02:04] LABS: Reflex Troponin-HS? (from REC) Y
[2022-09-04 03:02] LABS: Mucous, Urine 0 SEEN /hpf (<or=2+); Squamous Epithelial Cells - UA 0 SEEN /hpf (5-10)
[2022-09-04 03:03] LABS: Color, Urine Yellow (Yellow); Glucose, Dipstick Normal (Normal); Ketone-Dipstick Negative (Negative); Leukocyte Esterase-Dipstick 25 /ul (Negative); Nitrite-Dipstick Negative (Negative); Occult Blood-Urine 250 /ul (Negative); Protein-Dipstick 30 mg/dl (Negative); Urine Bilirubin Dipstick Negative (Negative); Urine Clarity Clear (Clear); Urine Urobilinogen Normal (Normal)
[2022-09-04 03:08] LABS: Bacteria RARE /hpf (None Seen); Red Blood Cells-Urine 25-50 SEEN /hpf (0-5); White Blood Cells 0-5 SEEN /hpf (0-5)
[2022-09-04 03:20] LABS: Troponin-I HS 7 pg/mL (3.0-54.0)
== END 2022-09-04 04:01 | disposition home or self-care (01) ==
PROVIDERS: Emergency Provider Emergency Medicine; PCP Internal Medicine; Visit Provider Emergency Medicine
DX: R53.1 Weakness (principal); J44.9 Chronic obstructive pulmonary disease, unspecified; R06.00 Dyspnea, unspecified; F17.210 Nicotine dependence, cigarettes, uncomplicated; Z79.899 Other long term (current) drug therapy
CPT/HCPCS: 71045; 80053; 81001; 84484; 85025; 93005; 99284; A4216

== ENCOUNTER 2022-11-08 18:39 | Inpatient (IN) | payer MEDICARE, SELFPAY ==
[2022-11-08] VITALS (9 sets, daily range): BP systolic 121–136; BP diastolic 69–76; PULSE 67–134; RESP 16–28; TEMP 37.2; O2SAT 88–95; BMI 20.6
--- NOTE | 2022-11-08 21:07 | ED.VIS.DYS ---
HPI History of Present Illness Chief Complaint: Shortness of Breath Narrative Narrative: 82-year-old female with history of COPD. She states has been having a cough and wheezing for the last couple of days. She reports that she saw her primary care provider for this last week and was not put on any medications. She has home nebulizers but has not been using them. She is not on any steroids currently. Patient denies chest pain. She is not had fever, chills, cough, myalgias. No nausea or vomiting. [facility] Medical History COPD (chronic obstructive pulmonary disease) Home Medications albuterol sulfate 90 mcg/actuation aerosol inhaler 2 puff IH Q6H PRN PRN Asthma 08/25/20 [History Last Taken Unknown] alendronate 70 mg tablet 70 mg PO SALVADOR bones 08/25/20 [History Last Taken Unknown] furosemide 20 mg tablet (Lasix) 40 mg PO BID fluid 11/28/20 [History Last Taken 11/28/20] metoprolol tartrate 25 mg tablet 25 mg PO BID #120 tabs 11/29/20 [Rx Last Taken Unknown] potassium chloride 20 mEq tablet,extended release(part/cryst) 20 meq PO BIDCM #60 tabs 11/29/20 [Rx Last Taken Unknown] budesonide 0.5 mg/2 mL suspension for nebulization (Pulmicort) 0.5 mg IH BID 12/10/20 [History Last Taken Unknown] formoterol fumarate 20 mcg/2 mL solution for nebulization (Perforomist) 20 mcg inhalation BID 12/10/20 [History Last Taken Unknown] methylprednisolone 4 mg tablets in a dose pack See Rx Instructions .Route .COMPLEX 10/04/21 [History Last Taken Unknown] methylprednisolone 4 mg tablets in a dose pack 4 mg PO UD ##1 11/22/21 [Rx Last Taken Unknown] tizanidine 2 mg tablet 2 mg PO QHS 11/08/22 [History Last Taken Unknown] Allergy/AdvReac Type Severity Reaction Status Date / Time oxycodone [From Percocet] Allergy dizziness Verified 11/08/22 18:40 prednisolone Allergy Other Verified 11/08/22 18:40 Surgical History Hx of cholecystectomy Social History Smoking Status: Current every day smoker tobacco type: cigarettes ROS ROS ED Constitutional Constitutional ED: Denies chills or fever(s) Eyes Eyes: Denies change in vision or diplopia ENT ENT ED: Denies rhinorrhea or sore throat Cardiovascular Cardiovascular: Denies chest pain or palpitations Respiratory/Chest Respiratory/Chest: Reports cough and dyspnea Gastrointestinal Gastrointestinal: Denies abdominal pain, nausea or vomiting Genitourinary Genitourinary ED: Denies dysuria or hematuria Musculoskeletal Musculoskeletal: Denies arthralgias Integumentary Denies abscess Neurologic Neurologic: Denies headache(s) or paresthesias Psychiatric Psychiatric: Denies anxiety or depression EXAM Physical Exam Const Vital Signs: 11/08/22 18:41 11/08/22 20:27 11/08/22 20:28 Temperature 98.9 F Temperature Source Temporal Pulse Rate 70 67 Respiratory Rate 16 26 H Respiratory Effort Non-Labored Short of Breath Respiratory Depth Normal Blood Pressure 121/74 H 123/69 H Blood Pressure Mean 89 87 Pulse Ox 92 92 Oxygen Delivery Method Room Air Room Air Room Air Oxygen Flow Rate (L/min) 11/08/22 21:14 11/08/22 22:14 11/08/22 22:28 Temperature Temperature Source Pulse Rate 68 132 H 134 H Respiratory Rate 20 H 28 H Respiratory Effort Respiratory Depth Blood Pressure 136/76 H Blood Pressure Mean 96 Pulse Ox 90 88 Oxygen Delivery Method Room Air Oxygen Flow Rate (L/min) 11/08/22 22:41 11/08/22 22:45 11/08/22 22:53 Temperature Temperature Source Pulse Rate 94 134 H Respiratory Rate Respiratory Effort Respiratory Depth Blood Pressure Blood Pressure Mean Pulse Ox 95 93 Oxygen Delivery Method Nasal Cannula Nasal Cannula Oxygen Flow Rate (L/min) 2 2 Positive well nourished General Appearance ED: NAD; Negative for pallor HEENT Reports moist mucous membranes Eyes PERRL and EOMs intact bilaterally Neck no lymphadenopathy, supple and no meningeal signs Resp Resp Narrative: Tachypneic. She speaking in full sentences. Auscultation: wheezes expiratory wheezes Cardio regular rate and regular rhythm GI Auscultation: normoactive bowel sounds Extremity normal to inspection Neuro oriented x3 and CN's II-XII intact bilaterally Sensorium / Orientation: alert Psych mental status grossly normal Skin General Skin Exam: Negative for jaundice or pallor MDM MDM MDM Narrative Medical decision making narrative: Patient presenting with COPD exacerbation. She given Solu-Medrol 125 mg IV. She was given breathing treatments. I will obtain a chest x-ray and basic lab work. She does not have fever, chills, myalgias. During the patient's stay she started to have tachycardia and was placed on 2 L nasal. EKG was performed which shows SVT with a rate of 132. Prior to any intervention she spontaneously converted to a sinus rhythm was in the 90s. She was given a liter of IV fluids. CBC shows slight leukocytosis with white blood cell count of 12.2. Hemoglobin monitor stable. Platelets are normal. Renal function within normal limits. Potassium was 3.1 and this was repleted. Chest x-ray my interpretation shows no acute cardiopulmonary process and radiologist interprets this and agrees. Patient appears to be going in and out of SVT. Heart rate anywhere from 90-130's. She was given 5 of Lopressor. Given COPD exacerbation requiring 2 L of oxygen as well as intermittent tachycardia admission. She has had SVT in the past. Discussed with the hospitalist for admission. She request a magnesium level be drawn anemia. COVID and rapid influenza are also added. These will be followed on the medical floor. Impression: 1. COPD exacerbation 2. Hypokalemia 3. SVT Lab Data Labs: Laboratory Results - last 24 hr 11/08/22 11/08/22 11/08/22 21:20 21:20 22:55 WBC 12.2 H RBC 4.35 Hgb 13.8 Hct 42.4 MCV 97.5 MCH 31.7 MCHC 32.5 RDW Std Deviation 55.0 H RDW Coeff of Loc 15.4 H Plt Count 353 MPV 10.2 Immature Gran % (Auto) 0.200 Neut % (Auto) 69.4 Lymph % (Auto) 22.5 [place] % (Auto) 5.9 Eos % (Auto) 1.3 Baso % (Auto) 0.7 Absolute Neuts (auto) 8.4 H Absolute Lymphs (auto) 2.74 Nucleated RBC % 0 Sodium 143 Potassium 3.1 L Chloride 105 Carbon Dioxide 34.0 H Anion Gap 4 L BUN 17 Creatinine 0.91 Estim Creat Clear Calc 42.18 Est GFR (MDRD) Af Amer 75 Est GFR (MDRD) Non-Af 62 BUN/Creatinine Ratio 18.6 Glucose 105 Calcium 9.5 Troponin I High Sens 11 Radiography Diagnostic Testing: Clinical Impression(s) from Imaging Studies Chest X-Ray 11/08/22 21:20 IMPRESSION: Chronic lung disease without radiographic evidence of acute cardiopulmonary disease. Electronically Signed: Ilir Simmons MD at 21:33 EST , Discharge Plan Triage Chief Complaint: Shortness of Breath ED Provider: Sriram Faith Dx/Rx/DC Orders Prescriptions: No Action alendronate 70 MG tablet 70 mg PO SALVADOR albuterol sulfate 90 mcg/actuation HFA aerosol inhaler 2 puff IH Q6H PRN PRN (Reason: Asthma) Label Comments: Inhale 2 Puffs as instructed every 4 hours as needed. furosemide [Lasix] 20 MG tablet 40 mg PO BID potassium chloride 20 MEQ tablet 20 meq PO BIDCM Qty: 60 0RF metoprolol tartrate 25 MG tablet 25 mg PO BID Qty: 120 0RF budesonide [Pulmicort] 0.5 MG/2 ML suspension for nebulization 0.5 mg IH BID formoterol fumarate [Perforomist] 20 MCG/2 ML solution for nebulization 20 mcg INHALATION BID methylprednisolone 4 mg tablets,dose pack See Rx Instructions .ROUTE .COMPLEX Rx Instructions: taper over 1 week methylprednisolone [methylprednisolone] 4 MG tablets,dose pack 4 mg PO UD Qty: 1 0RF tizanidine 2 mg tablet 2 mg PO QHS Label Comments: TAKE 1 TABLET BY MOUTH AT BEDTIME NEEDED Primary Care Provider: Gabrielle Donis Referrals: Gabrielle Donis MD [Primary Care Provider] -
[2022-11-08] MEDS: Ipratropium/Albuterol Sulfate 3 ML AMPUL.NEB INHALATION (21:13)
[2022-11-08] MEDS: Albuterol 2.5 MG/3 ML VIAL.NEB. INHALATION (21:13)
--- NOTE | 2022-11-08 21:20 | RAD_ITS ---
INDICATION: Cough, shortness of breath, weakness EXAMINATION/TECHNIQUE: X-RAY - XR Chest 1 View COMPARISON: 09/04/2022 FINDINGS: LINES/DEVICES: None. LUNGS: Hyperexpanded. Chronically coarsened lung markings. No consolidation, edema or effusion. No pneumothorax. MEDIASTINUM AND CARDIOVASCULAR STRUCTURES: Cardiac silhouette not enlarged. Central airways and mediastinal contour are unremarkable. RAD/Chest 1 View (Portable) IMPRESSION: Chronic lung disease without radiographic evidence of acute cardiopulmonary disease. Electronically Signed: Ilir Simmons MD at 21:33 EST ,
[2022-11-08 21:31] LABS: Absolute Lymphocyte Count 2.74 X10^3/uL (0.83-4.51); Absolute Neutrophil Count 8.4 X10^3/uL (2.0-7.7); Basophil# 0.08 X10^3/uL; Basophil% 0.7 % (0-1); Eosinophil# 0.16 X10^3/uL; Eosinophils% 1.3 % (0-5); Hematocrit 42.4 % (37-47); Hemoglobin 13.8 g/dL (12.0-15.0); Lymphocyte # 2.74 X10^3/ul (0.83-4.51); Lymphocyte % 22.5 % (19-41); Mean Corp Hgb Conc 32.5 g/dL (32-36); Mean Corpuscular Hgb 31.7 pg (27.0-32.0); Mean Corpuscular Volume 97.5 fL (81-99); Mean Platelet Vol. 10.2 fl (6.2-12.0); Monocyte# 0.72 X10^3/uL; Monocyte% 5.9 % (0-10); NRBC Flagged by Analyzer 0 % (0-5); Neutrophil # 8.43 X10^3/uL (2.7-7.7); Neutrophil % 69.4 % (47-70); Platelet Count 353 K/mm3 (150-450); RBC Distribution Width CV 15.4 % (11.6-14.6); Red Blood Count 4.35 M/mm3 (4.2-5.4); White Blood Count 12.2 K/mm3 (4.4-11.0)
[2022-11-08] MEDS: MethylPREDNISolone 125 MG/2 ML Vial IV (21:37)
[2022-11-08 21:46] LABS: Anion Gap 4 (5-15); BUN 17 mg/dL (7-18); BUN/Creat Ratio 18.6 RATIO (10-20); Calcium,Total 9.5 mg/dL (8.5-10.1); Chloride 105 mmol/L (98-107); Creatinine, Serum 0.91 mg/dL (0.55-1.02); EST Glomerular Filtration Rate 62 mL/min (>60); Est Glom Filt Rate - Afr Amer 75 mL/min (>60); Estimated Creatinine Clearance 42.18 ml/min; Glucose 105 mg/dL (74-106); Potassium 3.1 mmol/L (3.5-5.1); Sodium Level 143 mmol/L (136-145)
[2022-11-08] MEDS: Potassium Chloride Oral Tablet 20 MEQ 40 MEQ PO (22:26)
[2022-11-08] MEDS: 0.9% Normal Saline 1,000 ML 999 ML IV (23:02)
[2022-11-08 23:46] LABS: Troponin-I HS 11 pg/mL (3.0-54.0)
[2022-11-09] VITALS (17 sets, daily range): BP systolic 98–130; BP diastolic 53–98; PULSE 59–135; RESP 14–25; TEMP 35.9–37.2; O2SAT 90–97; BMI 21.3
[2022-11-09] MEDS: Metoprolol Tartrate 5 MG/5 ML Vial IV (00:24)
[2022-11-09 00:35] LABS: Magnesium 2.1 mg/dL (1.6-2.6)
--- NOTE | 2022-11-09 00:55 | HP.PCM.HOS_ITS ---
HPI - General General Date of Admission: 11/09/22 Date of Service: 11/09/22 Chief Complaint: Dyspnea, cough, wheezing. HPI Narrative The patient is an 82 y/o F w/ PMHx: COPD, Tobacco use, HTN, Hx SVT who presents to the [facility] ED on 11/09/22 with history of onset progressively worsening dyspnea, cough with no marked sputum production, increased congestion and rhinorrhea without any fever or chills worsening over the last 2-3 days with onset wheezing prompting eventual ED evaluation. She denies taking any medications currently for her COPD. Work-up in the ED included T98.9, heart rate 70, BP 121/74, respiratory rate 16, initially 92% on room air however following aerosols patient did have episode of SVT with heart rate increase up to 132 and at that time was noted to be 88% on room air requiring transition to 2 L nasal cannula with improvement to 95% and following metoprolol 5 mg IV x1 heart rate improved to 96 with no recurrent SVT events following but patient did have previous history of similar, see BC with WBC 12.2, hemoglobin 13.8, platelet 353 with left shift, BMP with potassium 3.1, carbon oxide 34 otherwise unremarkable, troponin 11, EKG performed while patient had transition to SVT with a rate of 132 with no acute evidence of ischemia, chest x-ray with chronic lung disease with no acute cardiopulmonary findings otherwise, rapid SARS COVID and influenza antigen negative. In the ED patient administered 1 L normal saline bolus, DuoNeb therapy and albuterol therapy, Solu-Medrol 125 mg IV x1, metoprolol titrate 5 mg IV x1 and potassium chloride 40 mill equivalent p.o. x1. [facility] Medical History COPD (chronic obstructive pulmonary disease) History of paroxysmal supraventricular tachycardia HTN (hypertension) Tobacco use Home Medications albuterol sulfate 90 mcg/actuation aerosol inhaler 2 puff IH Q6H PRN PRN Asthma 08/25/20 [History Last Taken Unknown] alendronate 70 mg tablet 70 mg PO SALVADOR bones 08/25/20 [History Last Taken Unknown] furosemide 20 mg tablet (Lasix) 40 mg PO BID fluid 11/28/20 [History Last Taken 11/28/20] metoprolol tartrate 25 mg tablet 25 mg PO BID #120 tabs 11/29/20 [Rx Last Taken Unknown] potassium chloride 20 mEq tablet,extended release(part/cryst) 20 meq PO BIDCM #60 tabs 11/29/20 [Rx Last Taken Unknown] budesonide 0.5 mg/2 mL suspension for nebulization (Pulmicort) 0.5 mg IH BID 12/10/20 [History Last Taken Unknown] formoterol fumarate 20 mcg/2 mL solution for nebulization (Perforomist) 20 mcg inhalation BID 12/10/20 [History Last Taken Unknown] methylprednisolone 4 mg tablets in a dose pack See Rx Instructions .Route .COMPLEX 10/04/21 [History Last Taken Unknown] methylprednisolone 4 mg tablets in a dose pack 4 mg PO UD ##1 11/22/21 [Rx Last Taken Unknown] tizanidine 2 mg tablet 2 mg PO QHS 11/08/22 [History Last Taken Unknown] Allergy/AdvReac Type Severity Reaction Status Date / Time oxycodone [From Percocet] Allergy dizziness Verified 11/08/22 18:40 prednisolone Allergy Other Verified 11/08/22 18:40 Family History (Updated 11/09/22 @ 02:[address] Johana Ya MD) Father Heart disease Hypertension CHF (congestive heart failure) other (Patient denies marked maternal family history including HD, DM, CA.) Surgical History Hx of cholecystectomy Social History (Updated 11/09/22 @ 02:[address] Johana Ya MD) household members: none Smoking Status: Current every day smoker tobacco type: cigarettes Smoking packs per day: 0.5 Smoking cigarettes per day: 10.0 alcohol intake: never substance use type: does not use ROS ROS Narrative Admission Review of Systems: CONSTITUTIONAL: No weight loss, fever, chills, + weakness or fatigue. HEENT: + Congestion, rhinorrhea. Eyes: No visual loss, blurred vision, double vision or yellow sclerae. Ears, Nose, Throat: No hearing loss, sneezing. SKIN: No rash or itching, lesions, wounds. CARDIOVASCULAR: No chest pain, chest pressure or chest discomfort, palpitations, edema, orthopnea, syncopal events. RESPIRATORY: + shortness of breath, cough without marked sputum, wheezing, No hemoptysis. GASTROINTESTINAL: No anorexia, nausea, vomiting or diarrhea, abdominal pain, melena, BRBPR. GENITOURINARY: No dysuria, frequency, urgency or retention. NEUROLOGICAL: No headache, dizziness, syncope, paralysis, ataxia, numbness or tingling in the extremities, focal weakness, change in bowel or bladder control, seizure. MUSCULOSKELETAL: + muscle, back pain, joint pain or stiffness. HEMATOLOGIC: + Easy bleeding or bruising. LYMPHATICS: No enlarged nodes. No history of splenectomy. PSYCHIATRIC: No history of depression or anxiety. ENDOCRINOLOGIC: No reports of sweating, cold or heat intolerance. No polyuria or polydipsia. ALLERGIES: No history of asthma, hives, eczema or rhinitis. Vital Signs Vital Signs Vital Signs: 11/08/22 18:41 11/08/22 20:27 11/08/22 20:28 Temperature 98.9 F Temperature Source Temporal Pulse Rate 70 67 Respiratory Rate 16 26 H Respiratory Effort Non-Labored Short of Breath Respiratory Depth Normal Blood Pressure 121/74 H 123/69 H Blood Pressure Mean 89 87 Pulse Ox 92 92 Oxygen Delivery Method Room Air Room Air Room Air Oxygen Flow Rate (L/min) 11/08/22 21:14 11/08/22 22:14 11/08/22 22:28 Temperature Temperature Source Pulse Rate 68 132 H 134 H Respiratory Rate 20 H 28 H Respiratory Effort Respiratory Depth Blood Pressure 136/76 H Blood Pressure Mean 96 Pulse Ox 90 88 Oxygen Delivery Method Room Air Oxygen Flow Rate (L/min) 11/08/22 22:41 11/08/22 22:45 11/08/22 22:53 Temperature Temperature Source Pulse Rate 94 134 H Respiratory Rate Respiratory Effort Respiratory Depth Blood Pressure Blood Pressure Mean Pulse Ox 95 93 Oxygen Delivery Method Nasal Cannula Nasal Cannula Oxygen Flow Rate (L/min) 2 2 11/09/22 00:00 11/09/22 00:25 Temperature Temperature Source Pulse Rate 95 135 H Respiratory Rate 25 H Respiratory Effort Respiratory Depth Blood Pressure 124/82 H 110/77 Blood Pressure Mean 96 88 Pulse Ox 97 Oxygen Delivery Method Room Air Oxygen Flow Rate (L/min) Weight Weight: 128 lb Body Mass Index (BMI) 20.6 Physical Exam Narrative Physical Examination: General: Awake, alert, oriented x 3 and cooperative, seated upright in the ED bed, fatigued, notes feeling somewhat better following recent ED interventions and on monitor heart rate still in the 80s with resolution of prior SVT episode Skin: Normal color, normal turgor, no icterus, no cyanosis. HEENT: AT/NC, EOMI, PERRLA, mildly dry MM, no carotid bruits or JVD noted. Lungs: Diminished, tight, decreased bases, mildly increased respiratory rate but no distress, occasional end expiratory wheeze, no rales or rhonchi. Heart: Currently regular rate and rhythm; no gallop, rub audible. Abdomen: Soft, thin habitus, NTTP, ND, normal BS, no HSM. Extremities: No cyanosis, clubbing, or edema. Neurological: Patient awake, alert, oriented as noted, cognitive function intact; pupils equally reactive to light and accommodation, cranial nerves II- XII grossly normal, moving all 4 extremities, no focal deficits, strength moderately to severely global to acute presentation. Psychiatric: Affect appears fatigued, no acute evidence of depressive or anxiety feelings. Results Lab / Micro Data Result Diagrams: 11/08/22 21:20 11/08/22 21:20 Labs: Laboratory Results - last 24 hr 11/08/22 21:20: WBC 12.2 H, RBC 4.35, Hgb 13.8, Hct 42.4, MCV 97.5, MCH 31.7, MCHC 32.5, RDW Std Deviation 55.0 H, RDW Coeff of Loc 15.4 H, Plt Count 353, MPV 10.2, Immature Gran % (Auto) 0.200, Neut % (Auto) 69.4, Lymph % (Auto) 22.5, Mo no % (Auto) 5.9, Eos % (Auto) 1.3, Baso % (Auto) 0.7, Absolute Neuts (auto) 8.4 H, Absolute Lymphs (auto) 2.74, Nucleated RBC % 0 11/08/22 21:20: Sodium 143, Potassium 3.1 L, Chloride 105, Carbon Dioxide 34.0 H , Anion Gap 4 L, BUN 17, Creatinine 0.91, Estim Creat Clear Calc 42.18, Est GFR (MDRD) Af Amer 75, Est GFR (MDRD) Non-Af 62, BUN/Creatinine Ratio 18.6, Glucose 105, Calcium 9.5 11/08/22 22:55: Troponin I High Sens 11 11/08/22 22:55: Magnesium 2.1 Radiology Impression Chest X-Ray 11/08/22 21:20 IMPRESSION: Chronic lung disease without radiographic evidence of acute cardiopulmonary disease. Electronically Signed: Ilir Simmons MD at 21:33 EST , Assessment & Plan Assessment/Plan (1) COPD exacerbation: PLAN: Plan The patient is an 82 y/o F w/ PMHx: COPD, Tobacco use, HTN, Hx SVT who presents to the [facility] ED on 11/09/22 with history of onset progressively worsening dyspnea, cough with no marked sputum production, increased congestion and rhinorrhea without any fever or chills worsening over the last 2-3 days with onset wheezing prompting eventual ED evaluation. #1. Acute Hypoxia secondary to Acute on chronic COPD exacerbation suspected likely secondary to Acute Viral Syndrome: Will admit to PCU given SVT history and episode following aerosols, maintain on oxygen with wean as tolerated to room air, currently improved appearance thus will maintain on ATC budesonide only and avoid albuterol if able given no xopenex availability, maintain on IV methylprednisolone, HOB, IS parameters, if able to produce will obtain sputum culture, obtain full respiratory viral panel. #2. Episode SVT likely associate with aerosols with acute presentation with history of prior similar SVT episodes as noted we will maintain on telemetry be cautious, resolved spontaneously and has not recurred since with recent ED a dministration metoprolol tartrate 5 mg IV x1, continue home metoprolol regimen, avoid albuterol or DuoNeb therapy if able with usage as noted of the desonide. Magnesium level requested #3. Hypokalemia: Admission K+ 3.1, magnesium level requested, supplementation given, repeat level in AM. #4. Hypertension: Continue home regimen including metoprolol, Lasix, PRN hydralazine. #5. Tobacco Abuse: Encouraged cessation, inpatient consultation per RT, NR if desired. #6. DVT prophylaxis: SCDs, Lovenox. #7. CODE status: Patient HCPOA is April John her niece and living will is currently in place. Discussed CODE status at length including difference between FULL code, DNR-CCA and DNR-CC status. Following discussions about the differences in these status, requested DNR-CCA, no intubation status. Advanced Care Planning Face to Face Time: 16 minutes. Charges/Coding Visit Charges Inpatient E&M: 79237 Init Hosp L3 Procedures Hospitalists Procedures: 33154 Advncd Care Plan 30 Min
[2022-11-09] MEDS: 0.9% Normal Saline 1,000 ML 100 ML IV (03:50)
[2022-11-09 04:01] LABS: Absolute Lymphocyte Count 0.86 X10^3/uL (0.83-4.51); Absolute Neutrophil Count 10.5 X10^3/uL (2.0-7.7); Basophil# 0.03 X10^3/uL; Basophil% 0.3 % (0-1); Eosinophil# 0.01 X10^3/uL; Eosinophils% 0.1 % (0-5); Hematocrit 41.1 % (37-47); Hemoglobin 13.6 g/dL (12.0-15.0); Lymphocyte # 0.86 X10^3/ul (0.83-4.51); Lymphocyte % 7.5 % (19-41); Mean Corp Hgb Conc 33.1 g/dL (32-36); Mean Corpuscular Hgb 32.5 pg (27.0-32.0); Mean Corpuscular Volume 98.3 fL (81-99); Mean Platelet Vol. 10.1 fl (6.2-12.0); Monocyte# 0.05 X10^3/uL; Monocyte% 0.4 % (0-10); NRBC Flagged by Analyzer 0 % (0-5); Neutrophil # 10.52 X10^3/uL (2.7-7.7); Neutrophil % 91.4 % (47-70); Platelet Count 322 K/mm3 (150-450); RBC Distribution Width CV 15.6 % (11.6-14.6); RBC Distribution Width SD 56.1 fl (35.1-43.9); Red Blood Count 4.18 M/mm3 (4.2-5.4); White Blood Count 11.5 K/mm3 (4.4-11.0)
[2022-11-09 04:28] LABS: ALB/GLOB Ratio 0.8 RATIO (0.9-2.4); AST(SGOT) 21 U/L (15-37); Alanine Aminotransfer ALT/SGPT 25 U/L (13-56); Albumin, Serum 3.1 g/dL (3.2-5.0); Alkaline Phosphatase 104 U/L (45-117); Anion Gap 5 (5-15); BUN 18 mg/dL (7-18); BUN/Creat Ratio 18.4 RATIO (10-20); Calcium,Total 8.8 mg/dL (8.5-10.1); Chloride 108 mmol/L (98-107); Creatinine, Serum 0.98 mg/dL (0.55-1.02); EST Glomerular Filtration Rate 58 mL/min (>60); Est Glom Filt Rate - Afr Amer 70 mL/min (>60); Globulin 3.7 g/dL (2.2-4.2); Glucose 144 mg/dL (74-106); Protein, Total 6.8 g/dL (6.4-8.2); Sodium Level 144 mmol/L (136-145)
[2022-11-09 05:05] LABS: Procalcitonin < 0.04 ng/mL (0.00-0.09)
[2022-11-09] MEDS: 0.9% Saline Lock 10 ML Syringe IV ×2 (06:26→15:44)
[2022-11-09] MEDS: Potassium Chloride Oral Tablet 20 MEQ 40 MEQ PO (06:47)
[2022-11-09] MEDS: Enoxaparin 40 MG/0.4 ML Syringe SC (08:17)
[2022-11-09] MEDS: Potassium Chloride Oral Tablet 20 MEQ 60 MEQ PO (08:17)
[2022-11-09] MEDS: Furosemide 40 MG Tablet PO ×2 (08:18→17:24)
[2022-11-09] MEDS: Metoprolol Tartrate 25 MG Tablet PO (08:18)
[2022-11-09] MEDS: Potassium Chloride Oral Tablet 20 MEQ PO ×2 (08:18→16:06)
--- NOTE | 2022-11-09 10:15 | CASEMGMT ---
WHIT JAMES DC planning assessment: Pt awake, alert, and agreeable to participating in assessment. PCP: Dr. Ramirez (saw last week) Insurance: [employer] [facility], no change on 11/14/22 Living situation: pt lives alone in a 1 1/2 story home with a first floor set up and one step to enter. Pt states she is independent with ADLs. Her niece provides her with food and assists with laundry and transports her as needed. Pt does not drive. 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 DME: shower chair, raised toilet seat, cane, walker, grab bars, hand held shower, walker, nebulizer. SNF: Has been to [facility] 5-6 year ago. HHC: Had s/p [facility] stay 5-6 years ago. Unable to recall name of provider. Pt does not have home O2 at baseline. Pt would be agreeable to home health care at discharge. List of HH providers from [facility] including quality and resource use data and consistent with pt's insurance network and geographic area provided. Reviewed Home O2 providers and pt's choice is [facility]. Will continue to monitor and assist with dischare planning needs as identified. Jericho Davis RN CM
--- NOTE | 2022-11-09 13:54 | PCM.HOSP.N ---
Hospitalist Note This is an elderly white female with current tobacco abuse who presented to the emergency department early this morning with progressively worsening dyspnea, cough with no sputum production, increased congestion, rhinorrhea but no fever just feels that had progressively worsening the last 2 to 3 days. She developed a bout of SVT with a heart rate in the 130s and was noted to be hypoxic at 88% on room air at that time and was placed on 2 L nasal cannula improving her sats to 95%. She was given metoprolol 5 mg x 1 dose and her heart rate has improved. She is had no recurrent SVT since admission. Rapid COVID influenza were negative. Respiratory viral panel is unremarkable. I suspect this is related to an acute exacerbation of COPD. We will continue her home Lasix, as needed albuterol with scheduled DuoNebs and IV steroids currently. At this time she is on 2 L nasal cannula and oxygen saturations are in the mid to upper 90s. We will plan to wean this over time and hopeful for discharge in the next 24 hours as long as she remains stable or continues to improve.
--- NOTE | 2022-11-09 15:18 | CHAPLAIN ---
Type of Pastoral Visit _x__ Initial Visit ___ Follow-up Visit ___ On-call Visit ___ General Patient Visit ___ Spiritual Assessment ___ Family Conference ___ Bereavement ___ Rapid Response ___ Code Blue ___ Other (describe below) Pastoral Care Referral From _x__ Patient ___ Family ___ Nurse ___ Physician ___ Amphibian Crewmember ___ In Flight Refueling Operator ___ Other (describe below) Sacrament/Intervention __x_ Active listening ___ Anointing ___ Sikh ___ Bereavement ___ Communion ___ Tori exploration ___ ___ Life review _x__ Prayer ___ Reconciliation ___ Sacrament of Sick ___ Supportive presence ___ Wedding ___ Other (describe below) Pastoral Comments patient is sitting up in bed and looking at things on her tray; pt reports feeling much better today; pt says that a prayer would be fine and talk a bit about her bapt[employer]
[2022-11-09] MEDS: tiZANidine HCl 2 MG Tablet PO (21:03)
[2022-11-10] VITALS (14 sets, daily range): BP systolic 106–130; BP diastolic 53–81; PULSE 58–85; RESP 16–20; TEMP 36.2–36.6; O2SAT 79–97
--- NOTE | 2022-11-10 02:54 | NURSING ---
pt took 02 off po drop to 79% on ra
[2022-11-10 02:58] LABS: Absolute Lymphocyte Count 1.37 X10^3/uL (0.83-4.51); Absolute Neutrophil Count 18.5 X10^3/uL (2.0-7.7); Basophil# 0.02 X10^3/uL; Basophil% 0.1 % (0-1); Hematocrit 40.8 % (37-47); Hemoglobin 12.9 g/dL (12.0-15.0); Lymphocyte # 1.37 X10^3/ul (0.83-4.51); Lymphocyte % 6.8 % (19-41); Mean Corp Hgb Conc 31.6 g/dL (32-36); Mean Corpuscular Hgb 31.3 pg (27.0-32.0); Mean Platelet Vol. 10.2 fl (6.2-12.0); Monocyte# 0.24 X10^3/uL; Monocyte% 1.2 % (0-10); NRBC Flagged by Analyzer 0 % (0-5); Neutrophil # 18.47 X10^3/uL (2.7-7.7); Platelet Count 314 K/mm3 (150-450); RBC Distribution Width SD 57.9 fl (35.1-43.9); Red Blood Count 4.12 M/mm3 (4.2-5.4); White Blood Count 20.3 K/mm3 (4.4-11.0)
[2022-11-10 03:11] LABS: Anion Gap 5 (5-15); BUN 23 mg/dL (7-18); BUN/Creat Ratio 22.5 RATIO (10-20); Calcium,Total 9.1 mg/dL (8.5-10.1); Chloride 110 mmol/L (98-107); Creatinine, Serum 1.02 mg/dL (0.55-1.02); EST Glomerular Filtration Rate 55 mL/min (>60); Est Glom Filt Rate - Afr Amer 66 mL/min (>60); Estimated Creatinine Clearance 38.44 ml/min; Glucose 135 mg/dL (74-106); Potassium 4.4 mmol/L (3.5-5.1); Sodium Level 143 mmol/L (136-145)
[2022-11-10] MEDS: 0.9% Saline Lock 10 ML Syringe IV ×3 (05:00→21:30)
[2022-11-10] MEDS: Potassium Chloride Oral Tablet 20 MEQ PO ×2 (07:51→17:02)
[2022-11-10] MEDS: Metoprolol Tartrate 25 MG Tablet PO ×2 (08:40→21:25)
[2022-11-10] MEDS: Furosemide 40 MG Tablet PO ×2 (08:40→17:02)
[2022-11-10] MEDS: Enoxaparin 40 MG/0.4 ML Syringe SC (08:40)
[2022-11-10] MEDS: Ensure Plus High Protein 120 ML LIQUID PO ×2 (08:40→12:31)
--- NOTE | 2022-11-10 12:22 | CASEMGMT ---
WHIT JAMES follow-up: Visited pt who is up in the chair. Pt states she remains agreeable to home healthcare but states she has not reviewed the pt choice lists and requests this RN JACOB speak with her niece April. Call placed to April who states she is agreeable to home health if they are willing to come out. Pt's niece expressed concern with pt smoking and wearing O2 at home if determined to be needed. States pt has an O2 tank at home from [facility] but does not wear O2 nor have a concentrator. Pt's niece questioned need for pt to go to a SNF at discharge. Reviewed pt's mobility and pt without concerns related to mobility for returning home which will prevent insurance approval of SNF LOC at discharge. Discussed home health for O2 monitoring and education. Pt's niece agreeable and list from [facility] sent to her via text and request for top three choices. Call placed to [facility] and pt does have a prescription on file for 2l/min continuous with concentrator and portability. Will continue to monitor for home O2 needs and will arrange as determined. Jericho Davis RN CM
--- NOTE | 2022-11-10 13:43 | CASEMGMT ---
WHIT JAMES Follow-up: Pt's niece returned HH choices with [facility] 1st choice, [facility] 2nd choice, and [facility] 3rd choice. Referrals submitted via [facility]. Will await acceptance. Jericho Davis RN CM
--- NOTE | 2022-11-10 14:27 | PN.HOSP_ITS ---
Subjective Subjective Patient states her breathing is better. Overall 50% better. Patient denies any home oxygen use however case management was able to discussed with the daughter and the patient has been prescribed 2 L for home use however does not use it because she continues to smoke. Currently on room air at rest however with am bulation required 3 L. Still with significant cough but no sputum production Objective Data Objective Data Vital Signs: Vital Signs Temp Pulse Resp BP Pulse Ox O2 Del Method O2 Flow Rate 97.4 F L 66 20 H 108/58 L 94 Room Air 2 11/10/22 14:20 11/10/22 14:20 11/10/22 14:20 11/10/22 14:20 11/10/22 14:20 11/10/22 14:20 11/10/22 08:30 Oxygen Flow Rate (L/min) [ 3 AMBULATING with Oxygen #2] Oxygen Flow Rate (L/min) [ 2 AMBULATING with Oxygen #1] Oxygen Flow Rate (L/min) 2 Oxygen Delivery Method Room Air Weight: 61.1 kg Body Mass Index (BMI) 21.3 Intake & Output: Intake and Output for Last 24 Hours 11/08/22 11/09/22 11/10/22 23:59 23:59 23:59 Intake Total 2100 / 2220 580 / 580 Balance 2100 / 2220 580 / 580 Lab / Micro Data Result Diagrams: 11/10/22 02:45 11/10/22 02:45 Labs: Laboratory Results - last 24 hr 11/10/22 02:45: WBC 20.3 H, RBC 4.12 L, Hgb 12.9, Hct 40.8, MCV 99.0, MCH 31.3, MCHC 31.6 L, RDW Std Deviation 57.9 H, RDW Coeff of Loc 16.0 H, Plt Count 314, MPV 10.2, Immature Gran % (Auto) 0.900, Neut % (Auto) 91.0 H, Lymph % (Auto) 6.8 L, Garrard % (Auto) 1.2, Eos % (Auto) 0.0, Baso % (Auto) 0.1, Absolute Neuts (auto) 18.5 H, Absolute Lymphs (auto) 1.37, Nucleated RBC % 0 11/10/22 02:45: Sodium 143, Potassium 4.4, Chloride 110 H, Carbon Dioxide 28.0, Anion Gap 5, BUN 23 H, Creatinine 1.02, Estim Creat Clear Calc 38.44, Est GFR (MDRD) Af Amer 66, Est GFR (MDRD) Non-Af 55 L, BUN/Creatinine Ratio 22.5 H, Glucose 135 H, Calcium 9.1 Micro: Microbiology 11/09/22 07:30 Mucosa - Nasopharyngeal Respiratory Panel (PCR) - Final 11/09/22 00:40 Nasal Secretion SARS-CoV-2 & FLU Antigen (Rapid) - Final Physical Exam Const alert and oriented x3 Constitutional Narrative: Thin, elderly white female sitting up in bed, appears comfortable, currently on room air, nontoxic HEENT head/scalp atraumatic and moist oral mucous membranes HEENT Narrative: Dentition is poor, Mallampati is 1-2, no thrush Head and Scalp: normocephalic Resp normal respiratory effort, no retractions and no use of accessory muscles Resp Narrative: Few scattered end expiratory wheeze, barrel chested, diffusely diminished, harsh rhonchorous sounding cough with no sputum production Auscultation: wheezes; Negative for crackles or rhonchi Cardio regular rate, regular rhythm, S1 normal heart sound, S2 normal heart sound, no murmurs, no rub, no gallops and no clicks GI normal to inspection, nondistended, normoactive bowel sounds, soft to palpation and non-tender Extremity no clubbing, cyanosis or edema Extremity Narrative: 2+ pedal pulses Neuro oriented x3, moves all extremities and no focal motor deficits Speech: speech normal Psych affect normal Assessment & Plan Assessment/Plan (1) COPD exacerbation: (2) Supraventricular tachycardia: (3) Hypokalemia: (4) Tobacco dependence: (5) Leukocytosis: PLAN: Plan Acute on chronic hypoxia secondary to acute exacerbation of COPD -Patient is supposed to be on 2 L baseline at home but does not wear this due to the fact she smokes cigarettes still -Currently on room air at rest however required 3 L with ambulation -Rapid COVID and flu are negative -Viral respiratory panel are negative -Patient with harsh cough but unable to produce sputum -Add Mucinex -Continue I-S -Add Pep therapy -Continue scheduled and as needed nebulizers -Continue steroids -Anticipate discharge home in next 24 hours on oxygen Leukocytosis -Likely demargination with steroid use -Infectious work-up is negative thus far Episode of SVT -No further episodes since emergency department episode -Likely related to albuterol use Hypokalemia -Resolved Hypertension -Continue home metoprolol, Lasix -As needed hydralazine for systolic blood pressure greater 160 COPD -Home inhalers on hold Osteoporosis -Restart alendronate at discharge Tobacco abuse -Patient continues to smoke -Recommend cessation -Patient instructed not to smoke while on oxygen and to remove oxygen if she continues to smoke DVT prophylaxis -Continue Lovenox -Continue SCDs CODE STATUS -DNR CCA with no intubation
[2022-11-10] MEDS: guaiFENesin 1,200 MG Tablet 1200 MG PO (21:25)
[2022-11-10] MEDS: tiZANidine HCl 2 MG Tablet PO (21:25)
[2022-11-11] VITALS (9 sets, daily range): BP systolic 117–131; BP diastolic 51–74; PULSE 54–78; RESP 18–20; TEMP 36.1–36.2; O2SAT 88–95
[2022-11-11 05:31] LABS: Absolute Lymphocyte Count 1.05 X10^3/uL (0.83-4.51); Absolute Neutrophil Count 18.7 X10^3/uL (2.0-7.7); Basophil# 0.03 X10^3/uL; Basophil% 0.1 % (0-1); Hematocrit 38.8 % (37-47); Hemoglobin 12.6 g/dL (12.0-15.0); Lymphocyte # 1.05 X10^3/ul (0.83-4.51); Lymphocyte % 5.2 % (19-41); Mean Corp Hgb Conc 32.5 g/dL (32-36); Mean Corpuscular Hgb 32.3 pg (27.0-32.0); Mean Corpuscular Volume 99.5 fL (81-99); Mean Platelet Vol. 10.2 fl (6.2-12.0); Monocyte# 0.29 X10^3/uL; Monocyte% 1.4 % (0-10); NRBC Flagged by Analyzer 0 % (0-5); Neutrophil % 92.8 % (47-70); Platelet Count 294 K/mm3 (150-450); RBC Distribution Width SD 58.4 fl (35.1-43.9); White Blood Count 20.2 K/mm3 (4.4-11.0)
[2022-11-11] MEDS: 0.9% Saline Lock 10 ML Syringe IV (05:51)
[2022-11-11 05:52] LABS: Anion Gap 4 (5-15); BUN 36 mg/dL (7-18); BUN/Creat Ratio 35.3 RATIO (10-20); Calcium,Total 8.8 mg/dL (8.5-10.1); Chloride 108 mmol/L (98-107); Creatinine, Serum 1.02 mg/dL (0.55-1.02); EST Glomerular Filtration Rate 55 mL/min (>60); Est Glom Filt Rate - Afr Amer 66 mL/min (>60); Estimated Creatinine Clearance 38.44 ml/min; Glucose 129 mg/dL (74-106); Potassium 4.5 mmol/L (3.5-5.1); Sodium Level 140 mmol/L (136-145)
[2022-11-11] MEDS: Metoprolol Tartrate 25 MG Tablet PO (08:12)
[2022-11-11] MEDS: Ensure Plus High Protein 120 ML LIQUID PO (08:12)
[2022-11-11] MEDS: Potassium Chloride Oral Tablet 20 MEQ PO ×2 (08:12→16:59)
[2022-11-11] MEDS: Enoxaparin 40 MG/0.4 ML Syringe SC (08:12)
[2022-11-11] MEDS: Furosemide 40 MG Tablet PO ×2 (08:12→16:58)
[2022-11-11] MEDS: guaiFENesin 1,200 MG Tablet 1200 MG PO (08:12)
--- NOTE | 2022-11-11 10:30 | CASEMGMT ---
Addendum entered by Brittany Verma 11/11/22 13:50: No call back from [facility]. [facility] is able to accept patient and family agreeable. Discharge summary sent to [facility] via [facility] Addendum entered by Brittany Verma 11/11/22 10:35: April called this RN CM back and she confirmed patient has concentrator and oxygen tank with regulator but no NC. RN JACOB updated April to bring oxygen tank with her when she will order picker the patient and nursing can provide NC for patient. April states she will be able to order picker patient after 5pm. Original Note: RN JACOB updated that patient will be needing 2lpm with ambulation. Patient is established with [facility], concern that patient may not have concentrator. RN CM called lizzy Chen and inquired if she could see if patient has concentrator at home. RN JACOB updated April that [facility] is able to accept patient with start of care for 11/16/22. RN JACOB called [facility] and they are checking if they have staffing to accept. April to call this RN CM back regarding home concentrator.
--- NOTE | 2022-11-11 11:02 | PCM.DC.SUM ---
Providers Date of Admission: 11/09/22 Date of Discharge: 11/11/22 Primary Care Physician: Dr. Gabrielle Donis MD Reason For Visit: COPD EXACERBATION, HYPOXIA, SVT W/ AEROSIS Diagnosis Discharge Diagnosis (1) COPD exacerbation: Status: Chronic Code(s): J44.1 - Chronic obstructive pulmonary disease with (acute) exacerbation (2) Supraventricular tachycardia: Status: Acute Code(s): I47.1 - Supraventricular tachycardia (3) Hypokalemia: Status: Acute Code(s): E87.6 - Hypokalemia (4) Tobacco dependence: Status: Chronic Code(s): F17.200 - Nicotine dependence, unspecified, uncomplicated (5) Leukocytosis: Status: Acute Code(s): D72.829 - Elevated white blood cell count, unspecified (6) Moderate malnutrition: Status: Acute Code(s): E44.0 - Moderate protein-calorie malnutrition Plan Acute on chronic hypoxia secondary to acute exacerbation of COPD -Patient is supposed to be on 2 L baseline at home but does not wear this due to the fact she smokes cigarettes still -Currently on room air at rest however required 3 L with ambulation -Rapid COVID and flu are negative -Viral respiratory panel are negative -Patient with harsh cough but unable to produce sputum -Add Mucinex -Continue I-S -Add Pep therapy -Continue scheduled and as needed nebulizers -Continue steroids -Anticipate discharge home in next 24 hours on oxygen Leukocytosis -Likely demargination with steroid use -Infectious work-up is negative thus far Episode of SVT -No further episodes since emergency department episode -Likely related to albuterol use Hypokalemia -Resolved Hypertension -Continue home metoprolol, Lasix -As needed hydralazine for systolic blood pressure greater 160 COPD -Home inhalers on hold Osteoporosis -Restart alendronate at discharge Tobacco abuse -Patient continues to smoke -Recommend cessation -Patient instructed not to smoke while on oxygen and to remove oxygen if she continues to smoke DVT prophylaxis -Continue Lovenox -Continue SCDs CODE STATUS -DNR CCA with no intubation Medications at Discharge Home Medications albuterol sulfate 90 mcg/actuation aerosol inhaler 2 puff IH Q6H PRN PRN Asthma 08/25/20 alendronate 70 mg tablet 70 mg PO SALVADOR bones 08/25/20 furosemide 20 mg tablet (Lasix) 40 mg PO BID fluid 01/15/21 metoprolol tartrate 25 mg tablet 25 mg PO BID #120 tabs 11/29/20 potassium chloride 20 mEq tablet,extended release(part/cryst) 20 meq PO BIDCM #60 tabs 11/29/20 budesonide 0.5 mg/2 mL suspension for nebulization (Pulmicort) 0.5 mg IH BID 12/10/20 formoterol fumarate 20 mcg/2 mL solution for nebulization (Perforomist) 20 mcg inhalation BID 12/10/20 methylprednisolone 4 mg tablets in a dose pack See Rx Instructions .Route .COMPLEX 10/04/21 methylprednisolone 4 mg tablets in a dose pack 4 mg PO UD ##1 11/22/21 tizanidine 2 mg tablet 2 mg PO QHS 11/08/22 guaifenesin 1,200 mg tablet, extended release 12 hr (Mucus Relief ER) 1,200 mg PO BID #60 tabs 11/11/22 prednisone 10 mg tablet 10 mg PO DAILY #30 tabs 11/11/22 Hospital Course Operations None Procedures - (Chest x-ray) Summary of Care Provided Minutes Spent on Discharge: 36 Hospital Course: Mrs. Mares is an 82-year-old white female who presented to the emergency department [facility] on 11/09/2022 with shortness of breath, coughing, and wheezing. The patient has history of COPD and uses tobacco chronically. She does not follow with a adult remedial education instructor. She evidently is to be on 2 L of oxygen at home however per her niece does not wear this because she still smokes. She presented with the above complaints also complaining of increased congestion and rhinorrhea without fever or chills. Her symptoms had worsened the 2 to 3 days prior to presentation and she developed wheezing which prompted ED evaluation. Work-up in the ED included T98.9, heart rate 70, BP 121/74, respiratory rate 16, initially 92% on room air however following aerosols patient did have episode of SVT with heart rate increase up to 132 and at that time was noted to be 88% on room air requiring transition to 2 L nasal cannula with improvement to 95% and following metoprolol 5 mg IV x1 heart rate improved to 96 with no recurrent SVT events following but patient did have previous history of similar, CBC with WBC 12.2, hemoglobin 13.8, platelet 353 with left shift, BMP with potassium 3.1, carbon oxide 34 otherwise unremarkable, troponin 11, EKG performed while patient had transition to SVT with a rate of 132 with no acute evidence of ischemia, chest x-ray with chronic lung disease with no acute cardiopulmonary findings otherwise, rapid SARS COVID and influenza antigen negative. Respiratory viral panel was negative. She was given a nebulizer in the emergency department and developed SVT for very brief period of time and was given IV beta-acosta which resolved her SVT. She had no further bouts of SVT during her hospital course and was on telemetry throughout her entire stay. She evidently does have a history of this as well. She was admitted to the PCU given her episodic SVT and started on steroids, aggressive pulmonary toilet, incentive spirometer and Acapella. Her symptoms dramatically improved with this treatment and the patient was reporting she was at least 75 to 80% better on the a.m. of 11/11/2022. Given her improvement we prepared for discharge and performed an ambulatory pulse ox. Her oxygen saturations were 95% on room air at rest however she desatted to 88% ambulating on room air and improved to 89 to 90% while wearing 2 L with ambulation. Case management discussed whether or not the patient still had a concentrator in her home with a niece and evidently there is still one there set up for 2 L use at home therefore the patient will be discharged home in stable condition on 11/11/2022. We did discuss with her the importance of using her oxygen with ambulation and she voiced understanding however I am concerned that she may not follow-up as she had not previously. We also discharged her with Mucinex and a prednisone taper. I have requested that she follow-up with a adult remedial education instructor and call and make an appointment to be seen within the next week. She is to follow-up with her primary care physician within the next 2 weeks. We did discuss not smoking while on oxygen and the patient voiced understanding. 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 We did find that she does wear oxygen at home at 2 L however she has not been wearing it secondary to tobacco use. Const alert and oriented x3 Constitutional Narrative: Thin, frail-appearing, elderly white female sitting up in a chair at the bedside, appears comfortable, currently on room air, nontoxic General Appearance: cooperative, comfortable, well kempt and well developed Orientation / Consciousness: awake, oriented to person, oriented to place and oriented to time Exam Limitations: no limitations Nutritional Appearance: thin HEENT normocephalic, head/scalp atraumatic and moist oral mucous membranes; Negative for hearing grossly normal bilaterally HEENT Narrative: Dentition is poor, Mallampati is 2, no thrush, moderate hearing loss Eyes PERRL, EOMs intact bilaterally and conjunctivae normal Eyes Narrative: No scleral icterus Neck no lymphadenopathy and supple Neck Narrative: Trachea midline, no thyroid enlargement Resp normal respiratory effort, no retractions and no use of accessory muscles Resp Narrative: Scattered end expiratory wheeze, barrel chest, significantly diminished breath sounds Auscultation: wheezes; Negative for crackles or rhonchi Cardio regular rate, regular rhythm, S1 normal heart sound, S2 normal heart sound, no murmurs, no rub, no gallops and no clicks GI normal to inspection, nondistended, normoactive bowel sounds, soft to palpation and non-tender Extremity no clubbing, cyanosis or edema Extremity Narrative: 2+ pedal pulses Skin no rashes or lesions noted, no wounds, skin turgor normal and no jaundice Neuro oriented x3, CN's II-XII intact bilaterally, moves all extremities and no focal motor deficits Speech: speech normal Psych affect normal Psych Narrative: Very pleasant and appropriately interactive Weight / BMI Weight Weight: 60.8 kg Body Mass Index (BMI) 21.3 ABG / Lab / Microbiology Data Result Diagrams: 11/11/22 05:20 11/11/22 05:20 Laboratory: Laboratory Results - last 24 hr 11/11/22 05:20: WBC 20.2 H, RBC 3.90 L, Hgb 12.6, Hct 38.8, MCV 99.5 H, MCH 32.3 H, MCHC 32.5, RDW Std Deviation 58.4 H, RDW Coeff of Loc 16.0 H, Plt Count 294, MPV 10.2, Immature Gran % (Auto) 0.500, Neut % (Auto) 92.8 H, Lymph % (Auto) 5.2 L, [place] % (Auto) 1.4, Eos % (Auto) 0.0, Baso % (Auto) 0.1, Absolute Neuts (auto) 18.7 H, Absolute Lymphs (auto) 1.05, Nucleated RBC % 0 11/11/22 05:20: Sodium 140, Potassium 4.5, Chloride 108 H, Carbon Dioxide 28.0, Anion Gap 4 L, BUN 36 H, Creatinine 1.02, Estim Creat Clear Calc 38.44, Est GFR (MDRD) Af Amer 66, Est GFR (MDRD) Non-Af 55 L, BUN/Creatinine Ratio 35.3 H, Glucose 129 H, Calcium 8.8 Microbiology: Microbiology 11/09/22 07:30 Mucosa - Nasopharyngeal Respiratory Panel (PCR) - Final 11/09/22 00:40 Nasal Secretion SARS-CoV-2 & FLU Antigen (Rapid) - Final Meaningful Use Info Meaningful Use Diagnoses (Choose all that apply): None applicable Discharge Plan Admission Admit Date/Time: 11/09/22 00:55 Primary Reason for Your Visit: Shortness of breath Attending Provider: Susan Young Primary Care Provider: Gabrielle Donis Consulting Providers: Johana Ya Instructions Additional Instructions / Restrictions: 1. Please use oxygen with exertion as ordered but do not smoke while on oxygen 2. Please call within the next 48 hours to set up follow-up appointments with below referred physicians Discharge Orders/Prescriptions Prescriptions: New Mucus Relief ER 1,200 mg Tablet Extended Release 12hr 1,200 mg PO BID Qty: 60 1RF prednisone 10 mg tablet 10 mg PO DAILY Qty: 30 0RF Rx Instructions: 4 tablets x 3 days, 3 tablets x 3 days, 2 tablets x 3 days, 1 tablet x 3 days Continued alendronate 70 MG tablet 70 mg PO SALVADOR albuterol sulfate 90 mcg/actuation HFA aerosol inhaler 2 puff IH Q6H PRN PRN (Reason: Asthma) Label Comments: Inhale 2 Puffs as instructed every 4 hours as needed. furosemide [Lasix] 20 MG tablet 40 mg PO BID potassium chloride 20 MEQ tablet 20 meq PO BIDCM Qty: 60 0RF metoprolol tartrate 25 MG tablet 25 mg PO BID Qty: 120 0RF budesonide [Pulmicort] 0.5 MG/2 ML suspension for nebulization 0.5 mg IH BID formoterol fumarate [Perforomist] 20 MCG/2 ML solution for nebulization 20 mcg INHALATION BID methylprednisolone 4 mg tablets,dose pack See Rx Instructions .ROUTE .COMPLEX Rx Instructions: taper over 1 week methylprednisolone 4 MG tablets,dose pack 4 mg PO UD Qty: 1 0RF tizanidine 2 mg tablet 2 mg PO QHS Label Comments: TAKE 1 TABLET BY MOUTH AT BEDTIME NEEDED Referrals / Follow Up: Hector Degroot MD [Med Staff - Active Staff] - Within 1 Month (Call later today or tomorrow to set an appointment to be seen for your COPD within the next month) Gabrielle Donis MD [Primary Care Provider] - Within 2 Weeks Disposition Disposition (needs filled in before D/C Order can be placed): Home, Self Care Charges/Coding Visit Charges Inpatient E&M: 81649 Disch Hosp
== END 2022-11-11 17:44 | disposition home or self-care (01) | DRG 191 ==
LOC: ED 20:30 → ICU 11-09 03:43
PROVIDERS: Admitting Provider Family Medicine; Emergency Provider Student in an Organized Health Care Education/Training Program; PCP Internal Medicine; Visit Provider Internal Medicine
DX: J44.1 Chronic obstructive pulmonary disease with (acute) exacerbation (principal); I47.1 Supraventricular tachycardia; E44.0 Moderate protein-calorie malnutrition; R64 Cachexia; I10 Essential (primary) hypertension; E87.6 Hypokalemia; D72.829 Elevated white blood cell count, unspecified; F17.210 Nicotine dependence, cigarettes, uncomplicated; T48.6X5A Adverse effect of antiasthmatics, initial encounter; Y92.239 Unspecified place in hospital as the place of occurrence of the external cause; R09.02 Hypoxemia; Z20.822 Contact with and (suspected) exposure to COVID-19; M81.0 Age-related osteoporosis without current pathological fracture; Z79.83 Long term (current) use of bisphosphonates; Z79.51 Long term (current) use of inhaled steroids; Z79.899 Other long term (current) drug therapy
CPT/HCPCS: 36415; 71045; 80048; 80053; 83735; 84145; 84484; 85025; 87428; 87633; 93005; 94640; 94667; 94668; 94762; 99251; 99284; J7030; A4216; G0463